=== PATIENT | female | born 1960 | race Caucasian/White ===

== ENCOUNTER 2019-02-26 17:08 | Observation (INO) ==
[2019-02-26 17:47] LABS: Basophils % 0.4 % (0.0-0.8); Eosinophils # 0.1 10*3/uL (0.0-0.87); Eosinophils % 2.1 % (0.00-10.9); Hematocrit 35.4 VOL% (35.7-47.0); Hemoglobin 11.6 GM/DL (12.0-16.0); Immature Granulocytes % 0.2 %; Immature Granulocytes Absolute 0.01 #; Lymphocytes # 0.5 10*3/uL (1.4-4.0); Mean Corpuscular HGB Conc 32.8 GM/DL (32-36); Mean Corpuscular Volume 95.2 FL (87-102); Mean Platelet Volume 10.8 FL (9.6-12.0); Monocytes % 10.5 % (1.7-12.7); Neutrophils % 76.8 % (38.7-73.9); Platelet Count 146 T/CUMM (130-400); Red Blood Count 3.72 MC/CUMM (3.8-5.5); Red Cell Distribution Width 13.1 % (9.3-17.3); White Blood Count 5.1 T/CUMM (4-12)
[2019-02-26 17:55] LABS: Alanine Aminotransferase 24 U/L (13-56); Albumin 3.7 G/DL (3.4-5.0); Alkaline Phosphatase 83 U/L (45-117); Amylase 35 U/L (25-115); Aspartate Amino Transferase 20 U/L (0-37); Bilirubin,Total < 0.39 MG/DL (0.2-1.0); Blood Urea Nitrogen 10 MG/DL (7-18); Glucose 96 MG/DL (74-106); Osmolality,Calculated 279.3 MOS/KG (273-304); Total Protein 7.2 G/DL (6.4-8.3)
[2019-02-26] MEDS ORDERED: ONDANSETRON 4 MG/2 ML VIAL IV PRN (20:05)
[2019-02-26] MEDS ORDERED: HYDROmorphone 2 MG/1 ML VIAL IV PRN (20:05)
[2019-02-26] MEDS: DEXTROSE 5% LACTATED RINGERS 1,000 ML IV SCH (21:30)
[2019-02-27] MEDS: DEXTROSE 5% LACTATED RINGERS 1,000 ML IV SCH ×2 (07:38→11:35)
[2019-02-27] MEDS: NYSTATIN 500,000 UNIT/5 ML UDCUP SWISH/SWAL SCH ×2 (08:55→13:18)
[2019-02-27] MEDS ORDERED: PANTOPRAZOLE 40 MG VIAL IV SCH (09:00)
[2019-02-27 12:02] VITALS: BP 124/56
== END 2019-02-27 14:06 | disposition home or self-care (01) ==
LOC: EDUNIT# → EDBD → N.ED 17:08 → N.EDINP 17:08 → N.3E 20:43
PROVIDERS: ADMIT Student in an Organized Health Care Education/Training Program; ATTEND Student in an Organized Health Care Education/Training Program

== ENCOUNTER 2019-08-03 18:59 | Inpatient (IN) ==
[2019-08-03 19:20] LABS: Basophils % 0.1 % (0.0-0.8); Eosinophils % 0.2 % (0.00-10.9); Hemoglobin 12.5 GM/DL (12.0-16.0); Immature Granulocytes % 0.3 %; Immature Granulocytes Absolute 0.03 #; Lymphocytes # 0.5 10*3/uL (1.4-4.0); Lymphocytes % 5.3 % (21.3-54.2); Mean Corpuscular HGB Conc 32.9 GM/DL (32-36); Mean Corpuscular Volume 95.5 FL (87-102); Mean Platelet Volume 9.5 FL (9.6-12.0); Monocytes % 10.6 % (1.7-12.7); Neutrophils % 83.5 % (38.7-73.9); Platelet Count 213 T/CUMM (130-400); Red Blood Count 3.98 MC/CUMM (3.8-5.5); Red Cell Distribution Width 12.6 % (9.3-17.3); White Blood Count 8.7 T/CUMM (4-12)
[2019-08-03] MEDS ORDERED: MEPERIDINE 50 MG/1 ML VIAL IM STA (19:21)
[2019-08-03] MEDS ORDERED: PROMETHAZINE 25 MG/1 ML VIAL IM STA (19:21)
[2019-08-03] MEDS ORDERED: METOPROLOL TARTRATE 50 MG TABLET PO STA (19:26)
[2019-08-03] MEDS ORDERED: ONDANSETRON ODT 4 MG TABLET PO STA (19:30)
[2019-08-03 19:37] LABS: Alanine Aminotransferase 21 U/L (13-56); Albumin 3.4 G/DL (3.4-5.0); Alkaline Phosphatase 101 U/L (45-117); Aspartate Amino Transferase 16 U/L (0-37); Bilirubin,Total < 0.39 MG/DL (0.2-1.0); Blood Urea Nitrogen 6 MG/DL (7-18); Calcium 9.1 MG/DL (8.5-10.1); Estimated Glom Filtration Rate 71 ML/MIN; Glucose 88 MG/DL (74-106); Osmolality,Calculated 269.8 MOS/KG (273-304); Total Protein 7.5 G/DL (6.4-8.3)
[2019-08-03 19:40] LABS: Apearance,Urine CLEAR (Clear); Bacteria,Urine Occasional /HPF (Few); Bilirubin,Urine Negative (Negative); Blood, Urine Large mg/dL (Negative); Glucose,Urine (UA) Negative (Negative); Ketones,Urine Negative (Negative); Nitrite,Urine Negative (Negative); Protein,Urine Negative; RBC,Urine 1 /HPF (0-4); Urine Color Colorless (Yellow); Urine Specific Gravity 1.002 (1.001-1.035); Urine Urobilinogen < 2.0 EU/DL (0.2-1.0); WBC,Urine 2 /HPF (0-6)
[2019-08-03 19:45] LABS: Barbiturates Screen,Urine Negative (Negative); Benzodiazepines Screen,Urine Negative (Negative); Cannabinoid Screen,Urine Negative (Negative); Opiate Screen,Urine Positive (Negative); Phencyclidine Screen,Urine Negative (Negative)
[2019-08-03] MEDS ORDERED: CIPROFLOXACIN 500 MG TABLET PO STA (20:16)
[2019-08-03] MEDS ORDERED: guaiFENesin/DM ER 600-30 MG TABLET PO PRN (21:42)
[2019-08-03] MEDS ORDERED: DOCUSATE SODIUM 100 MG CAPSULE PO PRN (21:42)
[2019-08-03] MEDS ORDERED: ACETAMINOPHEN 325 MG TABLET PO PRN (21:42)
[2019-08-03] MEDS ORDERED: LEVOFLOXACIN INJ 500 MG in PREMIX 1 EACH IV SCH (23:00)
[2019-08-03] MEDS: MORPHINE 4 MG/1 ML VIAL IV PRN (23:10)
[2019-08-03] MEDS: SODIUM CHLORIDE 0.9% 1,000 ML IV SCH (23:14)
[2019-08-03] MEDS ORDERED: POLYETHYLENE GLYCOL POWDER 17 GM PACK PO PRN (23:49)
[2019-08-04] MEDS: MORPHINE 4 MG/1 ML VIAL IV PRN ×2 (02:03→07:16)
[2019-08-04 05:52] LABS: Basophils % 0.1 % (0.0-0.8); Eosinophils % 0.2 % (0.00-10.9); Hematocrit 33.7 VOL% (35.7-47.0); Hemoglobin 11.1 GM/DL (12.0-16.0); Immature Granulocytes % 0.2 %; Immature Granulocytes Absolute 0.02 #; Lymphocytes # 0.5 10*3/uL (1.4-4.0); Lymphocytes % 5.5 % (21.3-54.2); Mean Corpuscular HGB Conc 32.9 GM/DL (32-36); Mean Corpuscular Volume 94.9 FL (87-102); Mean Platelet Volume 10.2 FL (9.6-12.0); Monocytes % 13.6 % (1.7-12.7); Neutrophils % 80.4 % (38.7-73.9); Platelet Count 190 T/CUMM (130-400); Red Blood Count 3.55 MC/CUMM (3.8-5.5); Red Cell Distribution Width 12.6 % (9.3-17.3); White Blood Count 8.2 T/CUMM (4-12)
[2019-08-04 06:09] LABS: Alanine Aminotransferase 19 U/L (13-56); Albumin 2.6 G/DL (3.4-5.0); Alkaline Phosphatase 83 U/L (45-117); Aspartate Amino Transferase 19 U/L (0-37); Bilirubin,Total < 0.39 MG/DL (0.2-1.0); Blood Urea Nitrogen 6 MG/DL (7-18); Calcium 8.5 MG/DL (8.5-10.1); Estimated Glom Filtration Rate 74 ML/MIN; Glucose 80 MG/DL (74-106); Osmolality,Calculated 269.8 MOS/KG (273-304); Total Protein 6.1 G/DL (6.4-8.3)
[2019-08-04] MEDS: PANTOPRAZOLE 40 MG TABLET PO SCH ×2 (07:16→08:31)
[2019-08-04] MEDS: NICOTINE 21 MG/24 HR PATCH TRANSDERM SCH ×2 (07:16→08:31)
[2019-08-04] MEDS: SODIUM CHLORIDE 0.9% 1,000 ML IV SCH ×4 (07:17→18:40)
[2019-08-04] MEDS ORDERED: ENOXAPARIN 40 MG/0.4 ML SYRINGE SUBCUT SCH (09:00)
[2019-08-04] MEDS ORDERED: DESIPRAMINE 25 MG PO SCH (09:00)
[2019-08-04] MEDS: ONDANSETRON 4 MG/2 ML VIAL IV PRN ×3 (09:05→23:14)
[2019-08-04] MEDS ORDERED: BISACODYL 5 MG TABLET PO ONE (12:00)
[2019-08-04] MEDS: BUPRENORPHINE SL TAB 2 MG TABLET SL SCH ×2 (13:57→20:15)
[2019-08-04] MEDS ORDERED: POLYETHYLENE GLYCOL POWDER 255 GM BOTTLE PO ONE (13:58)
[2019-08-04] MEDS: GABAPENTIN 300 MG CAPSULE PO SCH ×3 (14:41→22:52)
[2019-08-04] MEDS: METHOCARBAMOL 500 MG TABLET PO SCH ×2 (14:41→20:16)
[2019-08-04] MEDS: LEVOFLOXACIN 500 MG TABLET PO SCH (20:16)
[2019-08-04] MEDS ORDERED: GABAPENTIN 100 MG CAPSULE PO SCH (21:00)
[2019-08-04] MEDS ORDERED: METHOCARBAMOL 500 MG TABLET PO SCH (21:00)
[2019-08-05] MEDS: SODIUM CHLORIDE 0.9% 1,000 ML IV SCH ×3 (02:47→16:00)
[2019-08-05] MEDS: BUPRENORPHINE SL TAB 2 MG TABLET SL SCH ×3 (04:14→20:42)
[2019-08-05 05:30] LABS: Basophils % 0.1 % (0.0-0.8); Eosinophils % 0.1 % (0.00-10.9); Hematocrit 32.1 VOL% (35.7-47.0); Hemoglobin 10.5 GM/DL (12.0-16.0); Immature Granulocytes % 0.3 %; Immature Granulocytes Absolute 0.02 #; Lymphocytes # 0.4 10*3/uL (1.4-4.0); Lymphocytes % 5.4 % (21.3-54.2); Mean Corpuscular HGB Conc 32.7 GM/DL (32-36); Mean Platelet Volume 9.8 FL (9.6-12.0); Monocytes % 10.9 % (1.7-12.7); Neutrophils % 83.2 % (38.7-73.9); Platelet Count 165 T/CUMM (130-400); Red Blood Count 3.38 MC/CUMM (3.8-5.5); Red Cell Distribution Width 12.6 % (9.3-17.3); White Blood Count 7.4 T/CUMM (4-12)
[2019-08-05 05:33] LABS: PT Patient Result 11.1 SECS (9.6-12.2)
[2019-08-05 05:55] LABS: Albumin 2.5 G/DL (3.4-5.0); Bilirubin,Total 0.5 MG/DL (0.2-1.0); Calcium 8.4 MG/DL (8.5-10.1); Osmolality,Calculated 273.5 MOS/KG (273-304)
[2019-08-05] MEDS ORDERED: MAGNESIUM CITRATE 300 ML BOTTLE PO ONE (06:00)
[2019-08-05] MEDS: GABAPENTIN 300 MG CAPSULE PO SCH ×3 (09:02→23:36)
[2019-08-05] MEDS: PANTOPRAZOLE 40 MG TABLET PO SCH (09:03)
[2019-08-05] MEDS: METHOCARBAMOL 500 MG TABLET PO SCH ×2 (09:03→20:44)
[2019-08-05] MEDS: NICOTINE 21 MG/24 HR PATCH TRANSDERM SCH (09:03)
[2019-08-05] MEDS: LACTATED RINGERS 1,000 ML IV SCH (09:09)
[2019-08-05] MEDS: ONDANSETRON 4 MG/2 ML VIAL IV PRN (14:38)
[2019-08-05] MEDS: LEVOFLOXACIN 500 MG TABLET PO SCH (20:41)
[2019-08-06] MEDS: BUPRENORPHINE SL TAB 2 MG TABLET SL SCH ×3 (05:13→20:52)
[2019-08-06] MEDS: ONDANSETRON 4 MG/2 ML VIAL IV PRN (07:27)
[2019-08-06] MEDS: SODIUM CHLORIDE 0.9% 1,000 ML IV SCH ×4 (07:29→22:15)
[2019-08-06] MEDS: LACTATED RINGERS 1,000 ML IV SCH (07:44)
[2019-08-06] MEDS: NICOTINE 21 MG/24 HR PATCH TRANSDERM SCH (09:00)
[2019-08-06] MEDS: GABAPENTIN 300 MG CAPSULE PO SCH (09:00)
[2019-08-06] MEDS: METHOCARBAMOL 500 MG TABLET PO SCH ×2 (09:00→20:52)
[2019-08-06] MEDS: PANTOPRAZOLE 40 MG TABLET PO SCH (09:01)
[2019-08-06] MEDS ORDERED: GABAPENTIN 50 MG/ML 30 ML/BOTTLE PO SCH (15:00)
[2019-08-06] MEDS: ACETAMINOPHEN 325 MG/10.15 ML UDCUP PO PRN (15:09)
[2019-08-06] MEDS: LEVOFLOXACIN 500 MG TABLET PO SCH (20:52)
[2019-08-07] MEDS: ACETAMINOPHEN 325 MG/10.15 ML UDCUP PO PRN ×2 (01:45→12:38)
[2019-08-07] MEDS: BUPRENORPHINE SL TAB 2 MG TABLET SL SCH ×3 (05:05→21:06)
[2019-08-07] MEDS: LACTATED RINGERS 1,000 ML IV SCH (08:54)
[2019-08-07] MEDS: LANSOPRAZOLE 3 MG/ML 90 ML/BOTTLE PO SCH (09:14)
[2019-08-07] MEDS: METHOCARBAMOL 500 MG TABLET PO SCH ×2 (09:15→21:06)
[2019-08-07] MEDS: NICOTINE 21 MG/24 HR PATCH TRANSDERM SCH (09:15)
[2019-08-07] MEDS: SODIUM CHLORIDE 0.9% 1,000 ML IV SCH (11:00)
[2019-08-07] MEDS: ONDANSETRON 4 MG/2 ML VIAL IV PRN ×2 (12:17→21:31)
[2019-08-07] MEDS: SODIUM CHLORIDE 0.65% NASAL SPRAY 45 ML BOTTLE BOTH NARES PRN ×2 (12:38→17:38)
[2019-08-07] MEDS: METOPROLOL SUCCINATE XL 25 MG TABLET PO SCH (12:38)
[2019-08-07] MEDS ORDERED: POLYETHYLENE GLYCOL POWDER 255 GM BOTTLE PO ONE (16:00)
[2019-08-07] MEDS: LEVOFLOXACIN 500 MG TABLET PO SCH (21:06)
[2019-08-08] MEDS: SODIUM CHLORIDE 0.9% 1,000 ML IV SCH ×5 (04:40→22:13)
[2019-08-08] MEDS: BUPRENORPHINE SL TAB 2 MG TABLET SL SCH ×3 (04:44→20:45)
[2019-08-08] MEDS ORDERED: MAGNESIUM CITRATE 300 ML BOTTLE PO ONE ×2 (06:00)
[2019-08-08] MEDS ORDERED: propofoL 200 MG/20 ML VIAL IV ONE (09:00)
[2019-08-08] MEDS ORDERED: ONDANSETRON 4 MG/2 ML VIAL ONE (09:00)
[2019-08-08] MEDS ORDERED: LIDOCAINE 2% 5 ML VIAL ONE (09:00)
[2019-08-08] MEDS: NICOTINE 21 MG/24 HR PATCH TRANSDERM SCH (09:49)
[2019-08-08] MEDS: LACTATED RINGERS 1,000 ML IV SCH ×2 (12:50→13:42)
[2019-08-08] MEDS: METHOCARBAMOL 500 MG TABLET PO SCH ×2 (14:47→20:29)
[2019-08-08] MEDS: POTASSIUM CHLORIDE 20 MEQ TABLET PO PRN (14:47)
[2019-08-08] MEDS: METOPROLOL SUCCINATE XL 25 MG TABLET PO SCH (14:51)
[2019-08-08] MEDS: LANSOPRAZOLE 3 MG/ML 90 ML/BOTTLE PO SCH (14:53)
[2019-08-08] MEDS: LEVOFLOXACIN 500 MG TABLET PO SCH (20:29)
[2019-08-08] MEDS: ACETAMINOPHEN 325 MG/10.15 ML UDCUP PO PRN (20:29)
[2019-08-09] MEDS: BUPRENORPHINE SL TAB 2 MG TABLET SL SCH ×3 (04:57→20:11)
[2019-08-09 05:51] LABS: Basophils % 0.1 % (0.0-0.8); Eosinophils % 0.1 % (0.00-10.9); Hematocrit 30.2 VOL% (35.7-47.0); Hemoglobin 10.3 GM/DL (12.0-16.0); Immature Granulocytes % 0.5 %; Immature Granulocytes Absolute 0.04 #; Lymphocytes # 0.5 10*3/uL (1.4-4.0); Lymphocytes % 5.9 % (21.3-54.2); Mean Corpuscular HGB Conc 34.1 GM/DL (32-36); Mean Corpuscular Volume 92.6 FL (87-102); Mean Platelet Volume 9.7 FL (9.6-12.0); Monocytes % 11.6 % (1.7-12.7); Neutrophils % 81.8 % (38.7-73.9); Platelet Count 185 T/CUMM (130-400); Red Blood Count 3.26 MC/CUMM (3.8-5.5); Red Cell Distribution Width 12.5 % (9.3-17.3); White Blood Count 7.8 T/CUMM (4-12)
[2019-08-09 06:02] LABS: Calcium 8.4 MG/DL (8.5-10.1); Osmolality,Calculated 280.1 MOS/KG (273-304)
[2019-08-09] MEDS: POTASSIUM CHLORIDE 20 MEQ TABLET PO PRN ×5 (07:30→23:27)
[2019-08-09] MEDS: SODIUM CHLORIDE 0.9% 1,000 ML IV SCH ×2 (07:35→15:51)
[2019-08-09] MEDS: LACTATED RINGERS 1,000 ML IV SCH (07:36)
[2019-08-09] MEDS ORDERED: POTASSIUM CHLORIDE RIDER 10 MEQ in PREMIX 1 EACH IV PRN (07:45)
[2019-08-09] MEDS: NICOTINE 21 MG/24 HR PATCH TRANSDERM SCH (09:29)
[2019-08-09] MEDS: METOPROLOL SUCCINATE XL 25 MG TABLET PO SCH (09:30)
[2019-08-09] MEDS: METHOCARBAMOL 500 MG TABLET PO SCH ×2 (09:31→20:11)
[2019-08-09] MEDS: LANSOPRAZOLE 3 MG/ML 90 ML/BOTTLE PO SCH (09:34)
[2019-08-09] MEDS: ACETAMINOPHEN 325 MG/10.15 ML UDCUP PO PRN ×2 (11:55→18:45)
[2019-08-09] MEDS: LORATADINE 10 MG TABLET PO SCH (15:50)
[2019-08-09] MEDS: LEVOFLOXACIN 500 MG TABLET PO SCH (20:11)
[2019-08-10] MEDS: POTASSIUM CHLORIDE 20 MEQ TABLET PO PRN ×4 (01:40→14:23)
[2019-08-10] MEDS: ACETAMINOPHEN 325 MG/10.15 ML UDCUP PO PRN ×3 (02:50→17:00)
[2019-08-10 05:22] LABS: Basophils % 0.1 % (0.0-0.8); Eosinophils % 0.1 % (0.00-10.9); Hematocrit 28.8 VOL% (35.7-47.0); Hemoglobin 9.7 GM/DL (12.0-16.0); Immature Granulocytes % 0.4 %; Immature Granulocytes Absolute 0.04 #; Lymphocytes # 0.3 10*3/uL (1.4-4.0); Lymphocytes % 3.3 % (21.3-54.2); Mean Corpuscular HGB Conc 33.7 GM/DL (32-36); Mean Corpuscular Volume 92.9 FL (87-102); Mean Platelet Volume 10.2 FL (9.6-12.0); Monocytes % 10.3 % (1.7-12.7); Neutrophils % 85.8 % (38.7-73.9); Platelet Count 185 T/CUMM (130-400); Red Cell Distribution Width 12.7 % (9.3-17.3); White Blood Count 9.8 T/CUMM (4-12)
[2019-08-10] MEDS: BUPRENORPHINE SL TAB 2 MG TABLET SL SCH ×2 (05:22→13:40)
[2019-08-10] MEDS: SODIUM CHLORIDE 0.9% 1,000 ML IV SCH (05:22)
[2019-08-10 05:40] LABS: Calcium 8.1 MG/DL (8.5-10.1)
[2019-08-10 05:50] LABS: Hypochromasia 1+; Lymphocytes 3 % (20-55); Platelet Estimate Adequate; Segmented Neutrophils 86 % (50-85); Total Cells Counted 100
[2019-08-10] MEDS: LACTATED RINGERS 1,000 ML IV SCH (06:23)
[2019-08-10] MEDS: NICOTINE 21 MG/24 HR PATCH TRANSDERM SCH (09:11)
[2019-08-10] MEDS: METHOCARBAMOL 500 MG TABLET PO SCH (09:11)
[2019-08-10] MEDS: METOPROLOL SUCCINATE XL 25 MG TABLET PO SCH (09:11)
[2019-08-10] MEDS: LANSOPRAZOLE 3 MG/ML 90 ML/BOTTLE PO SCH (09:11)
[2019-08-10] MEDS: LORATADINE 10 MG TABLET PO SCH (09:11)
[2019-08-10 11:25] VITALS: BP 142/80
== END 2019-08-10 17:41 | disposition home health service (06) | DRG 48 ==
LOC: EDBD → EDUNIT# → N.ED 18:59 → SUATTDRO 21:55 → N.EDINP 21:55 → N.ICU 22:15 → N.4E 08-04 10:44
PROVIDERS: ADMIT Internal Medicine; ATTEND Internal Medicine

== ENCOUNTER 2019-08-18 18:36 | Inpatient (IN) ==
[2019-08-18] MEDS ORDERED: fentaNYL 100 MCG/2 ML VIAL IV STA ×2 (19:07→20:29)
[2019-08-18] MEDS ORDERED: ONDANSETRON 4 MG/2 ML VIAL IV STA (19:07)
[2019-08-18 19:57] LABS: Basophils % 0.1 % (0.0-0.8); Eosinophils % 0.1 % (0.00-10.9); Hematocrit 35.8 VOL% (35.7-47.0); Hemoglobin 12.1 GM/DL (12.0-16.0); Immature Granulocytes % 0.4 %; Immature Granulocytes Absolute 0.05 #; Lymphocytes # 0.7 10*3/uL (1.4-4.0); Lymphocytes % 4.8 % (21.3-54.2); Mean Corpuscular HGB Conc 33.8 GM/DL (32-36); Mean Platelet Volume 9.4 FL (9.6-12.0); Monocytes % 7.3 % (1.7-12.7); Neutrophils % 87.3 % (38.7-73.9); Platelet Count 303 T/CUMM (130-400); Red Blood Count 3.81 MC/CUMM (3.8-5.5); Red Cell Distribution Width 13.4 % (9.3-17.3); White Blood Count 13.6 T/CUMM (4-12)
[2019-08-18 20:02] LABS: Apearance,Urine CLEAR (Clear); Bacteria,Urine Occasional /HPF (Few); Bilirubin,Urine Negative (Negative); Blood, Urine Small mg/dL (Negative); Glucose,Urine (UA) Negative (Negative); Ketones,Urine Negative (Negative); Mucus,Urine Occasional /LPF (Occasional); Nitrite,Urine Positive (Negative); Protein,Urine Negative; RBC,Urine 2 /HPF (0-4); Urine Color Amber (Yellow); Urine Specific Gravity 1.005 (1.001-1.035); WBC,Urine 3 /HPF (0-6)
[2019-08-18 20:28] LABS: Albumin 3.5 G/DL (3.4-5.0); Bilirubin,Total 0.7 MG/DL (0.2-1.0); Calcium 9.4 MG/DL (8.5-10.1); Osmolality,Calculated 276.4 MOS/KG (273-304); Total Protein 7.6 G/DL (6.4-8.3)
[2019-08-18] MEDS ORDERED: PHENAZOPYRIDINE 95 MG TABLET PO STA (20:29)
[2019-08-18] MEDS ORDERED: LEVOFLOXACIN INJ 750 MG in PREMIX 1 EACH IV STA (20:29)
[2019-08-18] MEDS ORDERED: POTASSIUM BICARB EFFERVESCENT 25 MEQ TABLET PO ONE (20:30)
[2019-08-18 20:35] LABS: Eosinophils 1 % (0-10); Lymphocytes 9 % (20-55); Segmented Neutrophils 87 % (50-85); Total Cells Counted 100
[2019-08-18 20:36] LABS: Platelet Estimate Normal
[2019-08-18] MEDS ORDERED: diphenhydrAMINE CAP 25 MG CAPSULE PO PRN (21:16)
[2019-08-18] MEDS ORDERED: NICOTINE 21 MG/24 HR PATCH TRANSDERM PRN (21:16)
[2019-08-18] MEDS ORDERED: ONDANSETRON 4 MG/2 ML VIAL IV PRN (21:16)
[2019-08-18] MEDS ORDERED: BISACODYL 5 MG TABLET PO PRN (21:16)
[2019-08-18] MEDS ORDERED: PROMETHAZINE 25 MG/1 ML VIAL IM PRN (21:16)
[2019-08-18] MEDS: MORPHINE 4 MG/1 ML VIAL IV PRN (22:04)
[2019-08-18] MEDS: SODIUM CHLORIDE 0.9% 1,000 ML IV SCH (22:04)
[2019-08-18] MEDS: ACETAMINOPHEN 325 MG TABLET PO PRN (23:47)
[2019-08-19] MEDS: MORPHINE 4 MG/1 ML VIAL IV PRN ×2 (00:57→04:00)
[2019-08-19 05:12] LABS: Basophils % 0.1 % (0.0-0.8); Eosinophils % 0.1 % (0.00-10.9); Hematocrit 29.8 VOL% (35.7-47.0); Immature Granulocytes % 0.3 %; Immature Granulocytes Absolute 0.03 #; Lymphocytes # 0.6 10*3/uL (1.4-4.0); Lymphocytes % 5.3 % (21.3-54.2); Mean Corpuscular HGB Conc 33.6 GM/DL (32-36); Mean Platelet Volume 9.9 FL (9.6-12.0); Monocytes % 9.4 % (1.7-12.7); Neutrophils % 84.8 % (38.7-73.9); Platelet Count 267 T/CUMM (130-400); Red Blood Count 3.17 MC/CUMM (3.8-5.5); Red Cell Distribution Width 13.3 % (9.3-17.3); White Blood Count 11.1 T/CUMM (4-12)
[2019-08-19 05:34] LABS: Albumin 2.6 G/DL (3.4-5.0); Bilirubin,Total 0.9 MG/DL (0.2-1.0); Calcium 8.8 MG/DL (8.5-10.1); Osmolality,Calculated 275.4 MOS/KG (273-304)
[2019-08-19] MEDS: SODIUM CHLORIDE 0.9% 1,000 ML IV SCH (05:41)
[2019-08-19] MEDS: POTASSIUM CHLORIDE 20 MEQ TABLET PO PRN ×2 (05:46→08:17)
[2019-08-19] MEDS ORDERED: POLYETHYLENE GLYCOL POWDER 17 GM PACK PO PRN (07:05)
[2019-08-19] MEDS: METOPROLOL SUCCINATE XL 25 MG TABLET PO SCH (08:05)
[2019-08-19] MEDS: LORATADINE 10 MG TABLET PO SCH (08:05)
[2019-08-19] MEDS: ACETAMINOPHEN 325 MG TABLET PO PRN (08:05)
[2019-08-19] MEDS: DICYCLOMINE 20 MG TABLET PO SCH ×4 (08:05→20:48)
[2019-08-19] MEDS: AZTREONAM 2,000 MG in SODIUM CHLORIDE 0.9% 100 ML IV SCH ×3 (08:05→20:17)
[2019-08-19] MEDS: BUPRENORPHINE SL TAB 2 MG TABLET SL SCH ×3 (08:08→23:40)
[2019-08-19] MEDS: DOCUSATE SODIUM 100 MG CAPSULE PO SCH (08:08)
[2019-08-19] MEDS ORDERED: DESIPRAMINE 25 MG PO SCH (09:00)
[2019-08-19] MEDS: LEVOFLOXACIN INJ 500 MG in PREMIX 1 EACH IV SCH (09:22)
[2019-08-19] MEDS ORDERED: MORPHINE ER 15 MG TABLET PO SCH (11:00)
[2019-08-19] MEDS ORDERED: LINACLOTIDE 145 MCG CAPSULE PO SCH (12:00)
[2019-08-19] MEDS: ACETAMINOPHEN 325 MG/10.15 ML UDCUP PO PRN ×2 (12:56→20:56)
[2019-08-19] MEDS: POTASSIUM CHLORIDE INJ 40 MEQ, SODIUM CHLORIDE 23.4% CONC INJ 38.5 MEQ in STERILE WATER... IV SCH (12:57)
[2019-08-19] MEDS: PHENAZOPYRIDINE 95 MG TABLET PO SCH ×2 (12:57→17:23)
[2019-08-19] MEDS: POTASSIUM CHLORIDE 20 MEQ/15 ML UDCUP PER TUBE PRN ×2 (12:57→20:48)
[2019-08-19] MEDS: MORPHINE IR 15 MG TABLET PO PRN ×2 (13:56→20:47)
[2019-08-19] MEDS ORDERED: LEVOFLOXACIN INJ 750 MG in PREMIX 1 EACH IV SCH (21:00)
[2019-08-20] MEDS: POTASSIUM CHLORIDE INJ 40 MEQ, SODIUM CHLORIDE 23.4% CONC INJ 38.5 MEQ in STERILE WATER... IV SCH (01:18)
[2019-08-20] MEDS: AZTREONAM 2,000 MG in SODIUM CHLORIDE 0.9% 100 ML IV SCH ×2 (01:48→09:27)
[2019-08-20] MEDS: ACETAMINOPHEN 325 MG/10.15 ML UDCUP PO PRN (02:50)
[2019-08-20] MEDS: MORPHINE IR 15 MG TABLET PO PRN (02:50)
[2019-08-20] MEDS ORDERED: POTASSIUM CHLORIDE 20 MEQ TABLET PO ONE (06:45)
[2019-08-20 07:58] VITALS: BP 130/75
[2019-08-20] MEDS: BUPRENORPHINE SL TAB 2 MG TABLET SL SCH (09:14)
[2019-08-20] MEDS: LEVOFLOXACIN INJ 500 MG in PREMIX 1 EACH IV SCH (09:14)
[2019-08-20] MEDS: DICYCLOMINE 20 MG TABLET PO SCH (09:15)
[2019-08-20] MEDS: METOPROLOL SUCCINATE XL 25 MG TABLET PO SCH (09:15)
[2019-08-20] MEDS: LORATADINE 10 MG TABLET PO SCH (09:15)
[2019-08-20] MEDS: PHENAZOPYRIDINE 95 MG TABLET PO SCH (09:15)
[2019-08-20] MEDS: DOCUSATE SODIUM 100 MG CAPSULE PO SCH (09:27)
== END 2019-08-20 10:15 | disposition home or self-care (01) | DRG 463 ==
LOC: N.ED 18:36 → N.EDINP 21:16 → N.4E 22:36
PROVIDERS: ADMIT Hospitalist; ATTEND Hospitalist

== ENCOUNTER 2019-09-13 18:14 | Inpatient (IN) ==
[2019-09-13] MEDS ORDERED: DICYCLOMINE 20 MG/2 ML AMP IM ONE (18:43)
[2019-09-13] MEDS ORDERED: SODIUM CHLORIDE 0.9% 1,000 ML IV STA (18:43)
[2019-09-13] MEDS ORDERED: METOCLOPRAMIDE 10 MG/2 ML VIAL IV STA (18:43)
[2019-09-13] MEDS ORDERED: ONDANSETRON 4 MG/2 ML VIAL IV STA (18:43)
[2019-09-13 18:51] LABS: Apearance,Urine Slightly Hazy (Clear); Bilirubin,Urine Negative (Negative); Blood, Urine Small mg/dL (Negative); Glucose,Urine (UA) Negative (Negative); Ketones,Urine Negative (Negative); Mucus,Urine Occasional /LPF (Occasional); Nitrite,Urine Negative (Negative); Protein,Urine 30 MG/DL; RBC,Urine 10 /HPF (0-4); Squamous Epithelial Cell,Urine Occasional /HPF (0-10); Urine Color Yellow (Yellow); Urine Specific Gravity 1.014 (1.001-1.035); Urine Urobilinogen < 2.0 EU/DL (0.2-1.0); WBC,Urine 26 /HPF (0-6)
[2019-09-13 18:55] LABS: Basophils % 0.2 % (0.0-0.8); Eosinophils # 0.8 10*3/uL (0.0-0.87); Eosinophils % 3.6 % (0.00-10.9); Hemoglobin 11.3 GM/DL (12.0-16.0); Immature Granulocytes % 0.8 %; Immature Granulocytes Absolute 0.18 #; Lymphocytes # 0.4 10*3/uL (1.4-4.0); Mean Corpuscular HGB Conc 33.2 GM/DL (32-36); Mean Corpuscular Volume 93.7 FL (87-102); Mean Platelet Volume 10.5 FL (9.6-12.0); Neutrophils % 87.4 % (38.7-73.9); Platelet Count 235 T/CUMM (130-400); Red Blood Count 3.63 MC/CUMM (3.8-5.5); Red Cell Distribution Width 13.4 % (9.3-17.3); White Blood Count 21.2 T/CUMM (4-12)
[2019-09-13 19:06] LABS: Alanine Aminotransferase 11 U/L (13-56); Albumin 2.9 G/DL (3.4-5.0); Alkaline Phosphatase 79 U/L (45-117); Amylase 11 U/L (25-115); Aspartate Amino Transferase 11 U/L (0-37); Bilirubin,Total < 0.39 MG/DL (0.2-1.0); Blood Urea Nitrogen 11 MG/DL (7-18); Calcium 8.9 MG/DL (8.5-10.1); Estimated Glom Filtration Rate 66 ML/MIN; Glucose 98 MG/DL (74-106); Osmolality,Calculated 268.1 MOS/KG (273-304); Total Protein 6.9 G/DL (6.4-8.3); Troponin I < 0.015 NG/ML (0.00-0.045)
[2019-09-13] MEDS ORDERED: LEVOFLOXACIN INJ 750 MG in PREMIX 1 EACH IV STA (19:44)
[2019-09-13] MEDS ORDERED: fentaNYL 100 MCG/2 ML VIAL IV STA (19:44)
[2019-09-13 19:45] LABS: Platelet Estimate Normal
[2019-09-13 19:46] LABS: Hypochromasia Slight; Microcytosis Slight
[2019-09-13] MEDS: LEVOFLOXACIN INJ 500 MG in PREMIX 1 EACH IV SCH (22:51)
[2019-09-13] MEDS: ENOXAPARIN 40 MG/0.4 ML SYRINGE SUBCUT SCH (22:51)
[2019-09-13] MEDS: SODIUM CHLORIDE 0.45% 1,000 ML IV SCH (22:51)
[2019-09-13] MEDS: MORPHINE 4 MG/1 ML VIAL IV PRN (22:55)
[2019-09-14] MEDS: MORPHINE 4 MG/1 ML VIAL IV PRN ×5 (03:42→22:41)
[2019-09-14 04:55] LABS: Basophils % 0.1 % (0.0-0.8); Eosinophils # 0.7 10*3/uL (0.0-0.87); Eosinophils % 3.8 % (0.00-10.9); Hematocrit 27.3 VOL% (35.7-47.0); Hemoglobin 8.9 GM/DL (12.0-16.0); Immature Granulocytes % 0.5 %; Lymphocytes # 0.3 10*3/uL (1.4-4.0); Lymphocytes % 1.7 % (21.3-54.2); Mean Corpuscular HGB Conc 32.6 GM/DL (32-36); Mean Corpuscular Volume 94.1 FL (87-102); Mean Platelet Volume 10.3 FL (9.6-12.0); Monocytes % 8.6 % (1.7-12.7); Neutrophils % 85.3 % (38.7-73.9); Platelet Count 198 T/CUMM (130-400); Red Cell Distribution Width 13.4 % (9.3-17.3); White Blood Count 19.5 T/CUMM (4-12)
[2019-09-14] MEDS: SODIUM CHLORIDE 0.45% 1,000 ML IV SCH ×3 (05:13→21:53)
[2019-09-14 05:25] LABS: Calcium 8.5 MG/DL (8.5-10.1)
[2019-09-14 05:28] LABS: Band Neutrophils 1 % (0-10); Eosinophils 3 % (0-10); Lymphocytes 1 % (20-55); Segmented Neutrophils 87 % (50-85); Total Cells Counted 100
[2019-09-14 05:29] LABS: Hypochromasia 1+; Microcytosis Slight; Platelet Estimate Adequate
[2019-09-14] MEDS: DULoxetine 30 MG CAPSULE PO SCH (08:54)
[2019-09-14] MEDS: PANTOPRAZOLE 40 MG TABLET PO SCH (08:54)
[2019-09-14] MEDS: METOPROLOL SUCCINATE XL 25 MG TABLET PO SCH (08:54)
[2019-09-14] MEDS ORDERED: ZALEPLON 5 MG CAPSULE PO ONE (21:18)
[2019-09-14] MEDS ORDERED: ZOLPIDEM 5 MG TABLET PO ONE (21:44)
[2019-09-14] MEDS: ENOXAPARIN 40 MG/0.4 ML SYRINGE SUBCUT SCH (21:52)
[2019-09-14] MEDS: LEVOFLOXACIN INJ 500 MG in PREMIX 1 EACH IV SCH (21:52)
[2019-09-15] MEDS: MORPHINE 4 MG/1 ML VIAL IV PRN ×5 (02:47→22:00)
[2019-09-15] MEDS: SODIUM CHLORIDE 0.45% 1,000 ML IV SCH ×2 (05:03→21:50)
[2019-09-15] MEDS: DULoxetine 30 MG CAPSULE PO SCH (08:54)
[2019-09-15] MEDS: METOPROLOL SUCCINATE XL 25 MG TABLET PO SCH (08:54)
[2019-09-15] MEDS: PANTOPRAZOLE 40 MG TABLET PO SCH (08:54)
[2019-09-15] MEDS: LACTULOSE 20 GM/30 ML UDCUP PO PRN (12:08)
[2019-09-15] MEDS: ONDANSETRON 4 MG/2 ML VIAL IV PRN (12:08)
[2019-09-15] MEDS ORDERED: MAGNESIUM CITRATE 300 ML BOTTLE PO ONE (13:46)
[2019-09-15] MEDS ORDERED: OXYBUTYNIN 5 MG TABLET PO ONE (17:58)
[2019-09-15] MEDS: LEVOFLOXACIN INJ 500 MG in PREMIX 1 EACH IV SCH (21:50)
[2019-09-15] MEDS: ENOXAPARIN 40 MG/0.4 ML SYRINGE SUBCUT SCH (21:51)
[2019-09-16] MEDS: MORPHINE 4 MG/1 ML VIAL IV PRN ×4 (04:15→20:45)
[2019-09-16] MEDS: SODIUM CHLORIDE 0.45% 1,000 ML IV SCH ×2 (04:16→20:59)
[2019-09-16 04:55] LABS: Basophils % 0.2 % (0.0-0.8); Eosinophils # 0.3 10*3/uL (0.0-0.87); Eosinophils % 1.7 % (0.00-10.9); Hematocrit 27.4 VOL% (35.7-47.0); Hemoglobin 9.1 GM/DL (12.0-16.0); Immature Granulocytes % 0.7 %; Immature Granulocytes Absolute 0.14 #; Lymphocytes # 0.3 10*3/uL (1.4-4.0); Lymphocytes % 1.7 % (21.3-54.2); Mean Corpuscular HGB Conc 33.2 GM/DL (32-36); Mean Corpuscular Volume 92.6 FL (87-102); Mean Platelet Volume 10.6 FL (9.6-12.0); Neutrophils % 86.7 % (38.7-73.9); Platelet Count 204 T/CUMM (130-400); Red Blood Count 2.96 MC/CUMM (3.8-5.5); Red Cell Distribution Width 13.4 % (9.3-17.3); White Blood Count 20.5 T/CUMM (4-12)
[2019-09-16 05:11] LABS: Calcium 8.6 MG/DL (8.5-10.1); Osmolality,Calculated 266.1 MOS/KG (273-304)
[2019-09-16 05:22] LABS: Eosinophils 1 % (0-10); Hypochromasia 1+; Lymphocytes 2 % (20-55); Platelet Estimate Adequate; Segmented Neutrophils 92 % (50-85); Total Cells Counted 100
[2019-09-16 05:23] LABS: Microcytosis Slight
[2019-09-16] MEDS ORDERED: POTASSIUM CHLORIDE 20 MEQ TABLET PO PRN (07:41)
[2019-09-16] MEDS: METOPROLOL SUCCINATE XL 25 MG TABLET PO SCH (08:30)
[2019-09-16] MEDS: DULoxetine 30 MG CAPSULE PO SCH (08:30)
[2019-09-16] MEDS: PANTOPRAZOLE 40 MG TABLET PO SCH (08:30)
[2019-09-16] MEDS: OXYBUTYNIN XL 5 MG TABLET PO SCH (08:30)
[2019-09-16] MEDS: POTASSIUM CHLORIDE 20 MEQ/15 ML UDCUP PER TUBE PRN ×4 (08:32→16:59)
[2019-09-16] MEDS: LACTULOSE 20 GM/30 ML UDCUP PO PRN (10:47)
[2019-09-16] MEDS: VANCOMYCIN INJ 500 MG in SODIUM CHLORIDE 0.9% 100 ML IV SCH ×2 (10:48→20:48)
[2019-09-16] MEDS: ENOXAPARIN 40 MG/0.4 ML SYRINGE SUBCUT SCH ×2 (20:49→22:10)
[2019-09-16] MEDS: ZOLPIDEM 5 MG TABLET PO PRN (20:59)
[2019-09-16] MEDS: LEVOFLOXACIN INJ 500 MG in PREMIX 1 EACH IV SCH (21:55)
[2019-09-17] MEDS: MORPHINE 4 MG/1 ML VIAL IV PRN ×4 (03:50→21:50)
[2019-09-17 05:02] LABS: Basophils % 0.1 % (0.0-0.8); Eosinophils # 0.2 10*3/uL (0.0-0.87); Eosinophils % 1.2 % (0.00-10.9); Hemoglobin 8.3 GM/DL (12.0-16.0); Immature Granulocytes % 0.5 %; Immature Granulocytes Absolute 0.09 #; Lymphocytes # 0.3 10*3/uL (1.4-4.0); Lymphocytes % 1.4 % (21.3-54.2); Mean Corpuscular HGB Conc 33.2 GM/DL (32-36); Mean Corpuscular Volume 92.3 FL (87-102); Mean Platelet Volume 10.2 FL (9.6-12.0); Monocytes % 8.8 % (1.7-12.7); Platelet Count 183 T/CUMM (130-400); Red Blood Count 2.71 MC/CUMM (3.8-5.5); Red Cell Distribution Width 13.4 % (9.3-17.3); White Blood Count 19.9 T/CUMM (4-12)
[2019-09-17 06:23] LABS: Hypochromasia 1+; Lymphocytes 1 % (20-55); Segmented Neutrophils 94 % (50-85); Total Cells Counted 100
[2019-09-17 06:24] LABS: Microcytosis Slight; Platelet Estimate Adequate
[2019-09-17] MEDS ORDERED: MAGNESIUM CITRATE 300 ML BOTTLE PO ONE (08:57)
[2019-09-17] MEDS: CEFEPIME 1,000 MG in SODIUM CHLORIDE 0.9% 100 ML IV SCH ×3 (10:11→21:23)
[2019-09-17] MEDS: DULoxetine 30 MG CAPSULE PO SCH (10:12)
[2019-09-17] MEDS: OXYBUTYNIN XL 5 MG TABLET PO SCH (10:12)
[2019-09-17] MEDS: PANTOPRAZOLE 40 MG TABLET PO SCH (10:12)
[2019-09-17] MEDS: METOPROLOL SUCCINATE XL 25 MG TABLET PO SCH ×2 (10:12→13:20)
[2019-09-17] MEDS ORDERED: SCOPOLAMINE 1.5 MG PATCH TRANSDERM ONE (13:47)
[2019-09-17] MEDS ORDERED: SEVOFLURANE 1 UNIT/15 MINUTE INH ONE (15:46)
[2019-09-17] MEDS ORDERED: MIDAZOLAM 2 MG/2 ML VIAL ONE (15:46)
[2019-09-17] MEDS ORDERED: propofoL 200 MG/20 ML VIAL IV ONE (15:46)
[2019-09-17] MEDS ORDERED: DEXAMETHASONE 4 MG/1 ML VIAL ONE (15:46)
[2019-09-17] MEDS ORDERED: LIDOCAINE 2% 5 ML VIAL ONE (15:46)
[2019-09-17] MEDS ORDERED: fentaNYL 100 MCG/2 ML VIAL ONE (15:46)
[2019-09-17] MEDS ORDERED: ONDANSETRON 4 MG/2 ML VIAL ONE (15:46)
[2019-09-17] MEDS ORDERED: PHENYLEPHRINE 1 MG/10 ML SYRINGE IV ONE (15:47)
[2019-09-17] MEDS: ENOXAPARIN 40 MG/0.4 ML SYRINGE SUBCUT SCH (21:24)
[2019-09-17] MEDS: LEVOFLOXACIN INJ 500 MG in PREMIX 1 EACH IV SCH (22:05)
[2019-09-18] MEDS: CEFEPIME 1,000 MG in SODIUM CHLORIDE 0.9% 100 ML IV SCH ×4 (02:45→20:40)
[2019-09-18] MEDS: MORPHINE 4 MG/1 ML VIAL IV PRN (03:13)
[2019-09-18] MEDS: SODIUM CHLORIDE 0.45% 1,000 ML IV SCH ×2 (04:05→09:52)
[2019-09-18 06:05] LABS: Basophils % 0.2 % (0.0-0.8); Hemoglobin 8.5 GM/DL (12.0-16.0); Immature Granulocytes % 0.7 %; Immature Granulocytes Absolute 0.13 #; Lymphocytes # 0.3 10*3/uL (1.4-4.0); Lymphocytes % 1.9 % (21.3-54.2); Mean Corpuscular HGB Conc 32.7 GM/DL (32-36); Mean Corpuscular Volume 94.5 FL (87-102); Mean Platelet Volume 10.3 FL (9.6-12.0); Monocytes % 4.9 % (1.7-12.7); Neutrophils % 92.3 % (38.7-73.9); Platelet Count 202 T/CUMM (130-400); Red Blood Count 2.75 MC/CUMM (3.8-5.5); Red Cell Distribution Width 13.8 % (9.3-17.3); White Blood Count 17.4 T/CUMM (4-12)
[2019-09-18 06:26] LABS: Calcium 8.5 MG/DL (8.5-10.1); Osmolality,Calculated 272.7 MOS/KG (273-304)
[2019-09-18 08:27] LABS: Lymphocytes 2 % (20-55); Platelet Estimate Normal; Segmented Neutrophils 97 % (50-85); Total Cells Counted 100
[2019-09-18] MEDS ORDERED: MAGNESIUM CITRATE 300 ML BOTTLE PO ONE (08:50)
[2019-09-18] MEDS: METOPROLOL SUCCINATE XL 25 MG TABLET PO SCH (09:50)
[2019-09-18] MEDS: DULoxetine 30 MG CAPSULE PO SCH (09:50)
[2019-09-18] MEDS: PANTOPRAZOLE 40 MG TABLET PO SCH (09:51)
[2019-09-18] MEDS: OXYBUTYNIN XL 5 MG TABLET PO SCH (09:51)
[2019-09-18] MEDS: NICOTINE 14 MG/24 HR PATCH TRANSDERM SCH (09:52)
[2019-09-18] MEDS: ONDANSETRON 4 MG/2 ML VIAL IV PRN (12:32)
[2019-09-18] MEDS: ENOXAPARIN 40 MG/0.4 ML SYRINGE SUBCUT SCH ×2 (20:40→21:45)
[2019-09-18] MEDS: LEVOFLOXACIN INJ 500 MG in PREMIX 1 EACH IV SCH (21:10)
[2019-09-19] MEDS: SODIUM CHLORIDE 0.45% 1,000 ML IV SCH ×3 (02:10→17:49)
[2019-09-19] MEDS: CEFEPIME 1,000 MG in SODIUM CHLORIDE 0.9% 100 ML IV SCH ×4 (02:10→21:25)
[2019-09-19 05:51] LABS: Basophils # 0.1 10*3/uL (0.0-0.2); Basophils % 0.2 % (0.0-0.8); Eosinophils # 0.1 10*3/uL (0.0-0.87); Eosinophils % 0.5 % (0.00-10.9); Hematocrit 28.4 VOL% (35.7-47.0); Hemoglobin 9.5 GM/DL (12.0-16.0); Immature Granulocytes % 0.8 %; Immature Granulocytes Absolute 0.19 #; Lymphocytes # 0.5 10*3/uL (1.4-4.0); Lymphocytes % 2.1 % (21.3-54.2); Mean Corpuscular HGB Conc 33.5 GM/DL (32-36); Mean Corpuscular Volume 92.5 FL (87-102); Mean Platelet Volume 10.1 FL (9.6-12.0); Monocytes % 6.2 % (1.7-12.7); Neutrophils % 90.2 % (38.7-73.9); Platelet Count 227 T/CUMM (130-400); Red Blood Count 3.07 MC/CUMM (3.8-5.5); Red Cell Distribution Width 13.8 % (9.3-17.3); White Blood Count 23.6 T/CUMM (4-12)
[2019-09-19 06:04] LABS: Calcium 8.9 MG/DL (8.5-10.1); Osmolality,Calculated 263.4 MOS/KG (273-304)
[2019-09-19 06:17] LABS: Lymphocytes 4 % (20-55); Segmented Neutrophils 93 % (50-85); Total Cells Counted 100
[2019-09-19 06:18] LABS: Hypochromasia 1+; Microcytosis Slight
[2019-09-19 06:19] LABS: Platelet Estimate Normal
[2019-09-19] MEDS: DULoxetine 30 MG CAPSULE PO SCH (09:47)
[2019-09-19] MEDS: METOPROLOL SUCCINATE XL 25 MG TABLET PO SCH (09:47)
[2019-09-19] MEDS: PANTOPRAZOLE 40 MG TABLET PO SCH (09:47)
[2019-09-19] MEDS: OXYBUTYNIN XL 5 MG TABLET PO SCH (09:47)
[2019-09-19] MEDS: NICOTINE 14 MG/24 HR PATCH TRANSDERM SCH (09:47)
[2019-09-19] MEDS: MORPHINE 4 MG/1 ML VIAL IV PRN ×2 (17:12→21:29)
[2019-09-19] MEDS: ENOXAPARIN 40 MG/0.4 ML SYRINGE SUBCUT SCH (21:25)
[2019-09-19] MEDS: LEVOFLOXACIN INJ 500 MG in PREMIX 1 EACH IV SCH (22:34)
[2019-09-20] MEDS: CEFEPIME 1,000 MG in SODIUM CHLORIDE 0.9% 100 ML IV SCH ×4 (02:50→20:33)
[2019-09-20] MEDS: MORPHINE 4 MG/1 ML VIAL IV PRN ×4 (02:50→20:35)
[2019-09-20 05:31] LABS: Calcium 8.5 MG/DL (8.5-10.1)
[2019-09-20 05:34] LABS: Basophils % 0.1 % (0.0-0.8); Eosinophils # 0.4 10*3/uL (0.0-0.87); Eosinophils % 1.8 % (0.00-10.9); Hematocrit 26.3 VOL% (35.7-47.0); Hemoglobin 8.6 GM/DL (12.0-16.0); Immature Granulocytes % 0.5 %; Immature Granulocytes Absolute 0.11 #; Lymphocytes # 0.3 10*3/uL (1.4-4.0); Lymphocytes % 1.6 % (21.3-54.2); Mean Corpuscular HGB Conc 32.7 GM/DL (32-36); Mean Corpuscular Volume 93.9 FL (87-102); Mean Platelet Volume 10.4 FL (9.6-12.0); Monocytes % 7.5 % (1.7-12.7); Neutrophils % 88.5 % (38.7-73.9); Platelet Count 228 T/CUMM (130-400); Red Cell Distribution Width 14.1 % (9.3-17.3); White Blood Count 20.8 T/CUMM (4-12)
[2019-09-20 05:58] LABS: Hypochromasia 1+; Lymphocytes 2 % (20-55); Platelet Estimate Adequate; Segmented Neutrophils 89 % (50-85); Total Cells Counted 100
[2019-09-20 05:59] LABS: Microcytosis Slight
[2019-09-20] MEDS: NICOTINE 14 MG/24 HR PATCH TRANSDERM SCH (09:17)
[2019-09-20] MEDS: PANTOPRAZOLE 40 MG TABLET PO SCH (09:17)
[2019-09-20] MEDS: POTASSIUM CHLORIDE 20 MEQ/15 ML UDCUP PER TUBE PRN ×4 (09:17→17:26)
[2019-09-20] MEDS: METOPROLOL SUCCINATE XL 25 MG TABLET PO SCH (09:17)
[2019-09-20] MEDS: OXYBUTYNIN XL 5 MG TABLET PO SCH (09:17)
[2019-09-20] MEDS: DULoxetine 30 MG CAPSULE PO SCH (09:17)
[2019-09-20] MEDS: LACTULOSE 20 GM/30 ML UDCUP PO PRN (14:46)
[2019-09-20] MEDS: ENOXAPARIN 40 MG/0.4 ML SYRINGE SUBCUT SCH (21:00)
[2019-09-20] MEDS: LEVOFLOXACIN INJ 500 MG in PREMIX 1 EACH IV SCH (21:02)
[2019-09-21] MEDS: MORPHINE 4 MG/1 ML VIAL IV PRN ×5 (00:30→21:37)
[2019-09-21] MEDS: CEFEPIME 1,000 MG in SODIUM CHLORIDE 0.9% 100 ML IV SCH ×4 (02:55→20:07)
[2019-09-21 06:20] LABS: Basophils % 0.2 % (0.0-0.8); Eosinophils # 0.5 10*3/uL (0.0-0.87); Eosinophils % 2.8 % (0.00-10.9); Hematocrit 26.8 VOL% (35.7-47.0); Hemoglobin 8.6 GM/DL (12.0-16.0); Immature Granulocytes % 0.7 %; Immature Granulocytes Absolute 0.13 #; Lymphocytes # 0.3 10*3/uL (1.4-4.0); Lymphocytes % 1.7 % (21.3-54.2); Mean Corpuscular HGB Conc 32.1 GM/DL (32-36); Mean Corpuscular Volume 94.7 FL (87-102); Mean Platelet Volume 10.2 FL (9.6-12.0); Monocytes % 5.7 % (1.7-12.7); Neutrophils % 88.9 % (38.7-73.9); Platelet Count 223 T/CUMM (130-400); Red Blood Count 2.83 MC/CUMM (3.8-5.5); Red Cell Distribution Width 14.1 % (9.3-17.3); White Blood Count 18.5 T/CUMM (4-12)
[2019-09-21 06:38] LABS: Calcium 8.5 MG/DL (8.5-10.1); Osmolality,Calculated 273.7 MOS/KG (273-304)
[2019-09-21 06:46] LABS: Eosinophils 4 % (0-10); Hypochromasia 1+; Platelet Estimate Adequate; Segmented Neutrophils 90 % (50-85); Total Cells Counted 100
[2019-09-21 06:47] LABS: Microcytosis Slight
[2019-09-21] MEDS: SODIUM CHLORIDE 0.45% 1,000 ML IV SCH ×2 (06:50→19:53)
[2019-09-21] MEDS: METOPROLOL SUCCINATE XL 25 MG TABLET PO SCH (09:59)
[2019-09-21] MEDS: OXYBUTYNIN XL 5 MG TABLET PO SCH (09:59)
[2019-09-21] MEDS: NICOTINE 14 MG/24 HR PATCH TRANSDERM SCH (09:59)
[2019-09-21] MEDS: DULoxetine 30 MG CAPSULE PO SCH (09:59)
[2019-09-21] MEDS: PANTOPRAZOLE 40 MG TABLET PO SCH (09:59)
[2019-09-21] MEDS ORDERED: fentaNYL 12 MCG/HR PATCH TRANSDERM SCH (16:30)
[2019-09-21] MEDS: LACTULOSE 20 GM/30 ML UDCUP PO PRN (18:15)
[2019-09-21] MEDS: ENOXAPARIN 40 MG/0.4 ML SYRINGE SUBCUT SCH (21:27)
[2019-09-22] MEDS: SODIUM CHLORIDE 0.45% 1,000 ML IV SCH ×3 (02:07→18:21)
[2019-09-22] MEDS: CEFEPIME 1,000 MG in SODIUM CHLORIDE 0.9% 100 ML IV SCH ×4 (02:41→21:24)
[2019-09-22] MEDS: MORPHINE 4 MG/1 ML VIAL IV PRN ×4 (03:07→20:06)
[2019-09-22] MEDS: NICOTINE 14 MG/24 HR PATCH TRANSDERM SCH (09:48)
[2019-09-22] MEDS: METOPROLOL SUCCINATE XL 25 MG TABLET PO SCH (10:17)
[2019-09-22] MEDS: PANTOPRAZOLE 40 MG TABLET PO SCH (10:17)
[2019-09-22] MEDS: DULoxetine 30 MG CAPSULE PO SCH (10:18)
[2019-09-22] MEDS: OXYBUTYNIN XL 5 MG TABLET PO SCH (10:18)
[2019-09-22] MEDS: ENOXAPARIN 40 MG/0.4 ML SYRINGE SUBCUT SCH (21:23)
[2019-09-22] MEDS: ZOLPIDEM 5 MG TABLET PO PRN (21:41)
[2019-09-23] MEDS: MORPHINE 4 MG/1 ML VIAL IV PRN ×5 (01:33→21:37)
[2019-09-23] MEDS: CEFEPIME 1,000 MG in SODIUM CHLORIDE 0.9% 100 ML IV SCH ×4 (04:00→21:34)
[2019-09-23 06:42] LABS: Basophils # 0.1 10*3/uL (0.0-0.2); Basophils % 0.2 % (0.0-0.8); Eosinophils # 0.4 10*3/uL (0.0-0.87); Eosinophils % 2.1 % (0.00-10.9); Hematocrit 27.6 VOL% (35.7-47.0); Hemoglobin 9.1 GM/DL (12.0-16.0); Immature Granulocytes % 0.5 %; Lymphocytes # 0.4 10*3/uL (1.4-4.0); Lymphocytes % 1.9 % (21.3-54.2); Mean Corpuscular Volume 92.6 FL (87-102); Mean Platelet Volume 10.7 FL (9.6-12.0); Monocytes % 5.5 % (1.7-12.7); Neutrophils % 89.8 % (38.7-73.9); Platelet Count 226 T/CUMM (130-400); Red Blood Count 2.98 MC/CUMM (3.8-5.5); Red Cell Distribution Width 14.2 % (9.3-17.3); White Blood Count 20.4 T/CUMM (4-12)
[2019-09-23 06:53] LABS: Calcium 8.5 MG/DL (8.5-10.1); Osmolality,Calculated 265.2 MOS/KG (273-304)
[2019-09-23 07:09] LABS: Eosinophils 1 % (0-10); Hypochromasia 1+; Microcytosis Slight; Platelet Estimate Adequate; Segmented Neutrophils 94 % (50-85); Total Cells Counted 100
[2019-09-23] MEDS: POTASSIUM CHLORIDE 20 MEQ/15 ML UDCUP PER TUBE PRN ×4 (07:58→18:03)
[2019-09-23] MEDS: PANTOPRAZOLE 40 MG TABLET PO SCH (09:37)
[2019-09-23] MEDS: METOPROLOL SUCCINATE XL 25 MG TABLET PO SCH (09:38)
[2019-09-23] MEDS: OXYBUTYNIN XL 5 MG TABLET PO SCH (09:38)
[2019-09-23] MEDS: DULoxetine 30 MG CAPSULE PO SCH (09:38)
[2019-09-23] MEDS: NICOTINE 14 MG/24 HR PATCH TRANSDERM SCH (10:50)
[2019-09-23] MEDS ORDERED: fentaNYL 25 MCG/HR PATCH TRANSDERM SCH (16:30)
[2019-09-23] MEDS: ZOLPIDEM 5 MG TABLET PO PRN (21:32)
[2019-09-23] MEDS: ENOXAPARIN 40 MG/0.4 ML SYRINGE SUBCUT SCH (21:33)
[2019-09-24] MEDS: MORPHINE 4 MG/1 ML VIAL IV PRN ×4 (03:38→18:28)
[2019-09-24] MEDS: CEFEPIME 1,000 MG in SODIUM CHLORIDE 0.9% 100 ML IV SCH ×2 (03:43→09:33)
[2019-09-24 05:52] LABS: Calcium 8.8 MG/DL (8.5-10.1); Osmolality,Calculated 271.8 MOS/KG (273-304)
[2019-09-24] MEDS: DULoxetine 30 MG CAPSULE PO SCH (09:32)
[2019-09-24] MEDS: OXYBUTYNIN XL 5 MG TABLET PO SCH (09:33)
[2019-09-24] MEDS: PANTOPRAZOLE 40 MG TABLET PO SCH (09:33)
[2019-09-24] MEDS: NICOTINE 14 MG/24 HR PATCH TRANSDERM SCH (09:33)
[2019-09-24] MEDS: METOPROLOL SUCCINATE XL 25 MG TABLET PO SCH (09:33)
[2019-09-24] MEDS: POTASSIUM CHLORIDE 20 MEQ/15 ML UDCUP PER TUBE PRN ×2 (09:34→11:48)
[2019-09-24] MEDS: ENOXAPARIN 40 MG/0.4 ML SYRINGE SUBCUT SCH (21:19)
[2019-09-24] MEDS: ZOLPIDEM 5 MG TABLET PO PRN (21:19)
[2019-09-25] MEDS: MORPHINE 4 MG/1 ML VIAL IV PRN ×3 (00:05→10:02)
[2019-09-25] MEDS: LACTULOSE 20 GM/30 ML UDCUP PO PRN (06:24)
[2019-09-25 07:51] VITALS: BP 119/57
[2019-09-25] MEDS: DULoxetine 30 MG CAPSULE PO SCH (08:02)
[2019-09-25] MEDS: METOPROLOL SUCCINATE XL 25 MG TABLET PO SCH (08:03)
[2019-09-25] MEDS: POTASSIUM CHLORIDE 20 MEQ/15 ML UDCUP PER TUBE PRN (08:03)
[2019-09-25] MEDS: PANTOPRAZOLE 40 MG TABLET PO SCH (08:03)
[2019-09-25] MEDS: OXYBUTYNIN XL 5 MG TABLET PO SCH (08:03)
[2019-09-25] MEDS: NICOTINE 14 MG/24 HR PATCH TRANSDERM SCH (09:38)
== END 2019-09-25 12:14 | disposition home or self-care (01) | DRG 446 ==
LOC: EDUNIT# → EDBD → N.ED 18:14 → SUATTDRO 21:27 → N.EDINP 21:27 → N.5E 22:16
PROVIDERS: ADMIT Internal Medicine; ATTEND Internal Medicine

== ENCOUNTER 2019-09-30 12:56 | Inpatient (IN) ==
[2019-09-30] MEDS ORDERED: SODIUM CHLORIDE 0.9% 1,000 ML IV STA (13:25)
[2019-09-30] MEDS ORDERED: LOPERAMIDE 2 MG CAPSULE PO STA (13:26)
[2019-09-30 14:27] LABS: Basophils # 0.1 10*3/uL (0.0-0.2); Basophils % 0.2 % (0.0-0.8); Eosinophils # 0.2 10*3/uL (0.0-0.87); Eosinophils % 0.8 % (0.00-10.9); Hematocrit 30.6 VOL% (35.7-47.0); Hemoglobin 9.8 GM/DL (12.0-16.0); Immature Granulocytes % 0.8 %; Immature Granulocytes Absolute 0.23 #; Lymphocytes # 0.4 10*3/uL (1.4-4.0); Lymphocytes % 1.4 % (21.3-54.2); Mean Corpuscular Volume 94.7 FL (87-102); Mean Platelet Volume 9.9 FL (9.6-12.0); Neutrophils % 92.8 % (38.7-73.9); Platelet Count 290 T/CUMM (130-400); Red Blood Count 3.23 MC/CUMM (3.8-5.5); Red Cell Distribution Width 14.6 % (9.3-17.3); White Blood Count 29.1 T/CUMM (4-12)
[2019-09-30 14:38] LABS: Apearance,Urine CLOUDY (Clear); Bilirubin,Urine Negative (Negative); Blood, Urine Large mg/dL (Negative); Glucose,Urine (UA) Negative (Negative); Ketones,Urine Negative (Negative); Mucus,Urine Moderate /LPF (Occasional); Nitrite,Urine Negative (Negative); Protein,Urine 100 MG/DL; RBC,Urine 959 /HPF (0-4); Urine Color Amber (Yellow); Urine Specific Gravity 1.013 (1.001-1.035); Urine Urobilinogen < 2.0 EU/DL (0.2-1.0); WBC,Urine 136 /HPF (0-6)
[2019-09-30 14:47] LABS: Acetaminophen < 2.0 UG/ML (10-30); Salicylate < 2.8 MG/DL (2.8-20)
[2019-09-30 14:50] LABS: Alanine Aminotransferase 11 U/L (13-56); Albumin 2.4 G/DL (3.4-5.0); Alkaline Phosphatase 100 U/L (45-117); Aspartate Amino Transferase 10 U/L (0-37); Blood Urea Nitrogen 16 MG/DL (7-18); Calcium 8.3 MG/DL (8.5-10.1); Estimated Glom Filtration Rate 65 ML/MIN; Glucose 85 MG/DL (74-106); Osmolality,Calculated 265.4 MOS/KG (273-304); Total Protein 6.1 G/DL (6.4-8.3)
[2019-09-30] MEDS ORDERED: LEVOFLOXACIN INJ 750 MG in PREMIX 1 EACH IV STA (14:56)
[2019-09-30] MEDS ORDERED: metroNIDAZOLE INJ 500 MG in PREMIX 1 EACH IV STA (14:56)
[2019-09-30] MEDS ORDERED: DICYCLOMINE 20 MG/2 ML AMP IM ONE (14:57)
[2019-09-30 15:11] LABS: Barbiturates Screen,Urine Negative (Negative); Benzodiazepines Screen,Urine Negative (Negative); Cannabinoid Screen,Urine Negative (Negative); Opiate Screen,Urine Positive (Negative); Phencyclidine Screen,Urine Negative (Negative)
[2019-09-30 15:21] LABS: Lymphocytes 2 % (20-55); Segmented Neutrophils 94 % (50-85); Total Cells Counted 100
[2019-09-30 15:22] LABS: Platelet Estimate Normal
[2019-09-30] MEDS ORDERED: CALCIUM CARBONATE CHEW 500 MG TABLET PO PRN (15:52)
[2019-09-30] MEDS ORDERED: SIMETHICONE CHEW 125 MG TABLET PO PRN (15:52)
[2019-09-30] MEDS ORDERED: ZOLPIDEM 5 MG TABLET PO PRN (16:01)
[2019-09-30] MEDS: MORPHINE IR 15 MG TABLET PO SCH (16:56)
[2019-09-30] MEDS: SODIUM CHLORIDE 0.9% 1,000 ML IV SCH (16:56)
[2019-09-30] MEDS: DICYCLOMINE 20 MG TABLET PO SCH ×2 (16:56→21:24)
[2019-09-30] MEDS: LACTULOSE 20 GM/30 ML UDCUP PO SCH ×2 (16:56→21:23)
[2019-09-30] MEDS: DOCUSATE SODIUM 100 MG CAPSULE PO SCH (21:24)
[2019-09-30] MEDS: METHOCARBAMOL 500 MG TABLET PO SCH (21:24)
[2019-09-30] MEDS: PHENAZOPYRIDINE 95 MG TABLET PO SCH (21:24)
[2019-10-01] MEDS: MORPHINE IR 15 MG TABLET PO SCH ×3 (01:12→15:44)
[2019-10-01] MEDS: LACTULOSE 20 GM/30 ML UDCUP PO SCH ×6 (01:13→20:44)
[2019-10-01] MEDS: SODIUM CHLORIDE 0.9% 1,000 ML IV SCH ×2 (01:14→10:40)
[2019-10-01 04:37] LABS: Basophils % 0.1 % (0.0-0.8); Eosinophils # 0.1 10*3/uL (0.0-0.87); Eosinophils % 0.6 % (0.00-10.9); Hematocrit 24.6 VOL% (35.7-47.0); Hemoglobin 7.8 GM/DL (12.0-16.0); Immature Granulocytes % 0.9 %; Lymphocytes # 0.3 10*3/uL (1.4-4.0); Lymphocytes % 1.5 % (21.3-54.2); Mean Corpuscular HGB Conc 31.7 GM/DL (32-36); Mean Platelet Volume 10.1 FL (9.6-12.0); Neutrophils % 91.9 % (38.7-73.9); Platelet Count 244 T/CUMM (130-400); Red Blood Count 2.59 MC/CUMM (3.8-5.5); Red Cell Distribution Width 14.5 % (9.3-17.3)
[2019-10-01 05:00] LABS: Albumin 1.9 G/DL (3.4-5.0); Bilirubin,Total 0.5 MG/DL (0.2-1.0); Calcium 7.8 MG/DL (8.5-10.1); Total Protein 4.9 G/DL (6.4-8.3)
[2019-10-01 05:14] LABS: Hypochromasia 2+; Lymphocytes 1 % (20-55); Microcytosis Slight; Platelet Estimate Adequate; Segmented Neutrophils 96 % (50-85); Total Cells Counted 100
[2019-10-01] MEDS ORDERED: SODIUM CHLORIDE 0.9% 1,000 ML IV PRN (07:17)
[2019-10-01] MEDS ORDERED: diphenhydrAMINE CAP 25 MG CAPSULE PO ONE (07:18)
[2019-10-01] MEDS ORDERED: ACETAMINOPHEN 325 MG TABLET PO ONE (07:18)
[2019-10-01] MEDS ORDERED: FUROSEMIDE 20 MG/2 ML VIAL IV ONE (07:19)
[2019-10-01] MEDS: METHOCARBAMOL 500 MG TABLET PO SCH ×2 (08:16→20:45)
[2019-10-01] MEDS: POTASSIUM CHLORIDE 10 MEQ TABLET PO SCH (08:16)
[2019-10-01] MEDS: PANTOPRAZOLE 40 MG TABLET PO SCH (08:16)
[2019-10-01] MEDS: DICYCLOMINE 20 MG TABLET PO SCH ×4 (08:16→20:45)
[2019-10-01] MEDS: PHENAZOPYRIDINE 95 MG TABLET PO SCH ×3 (08:16→20:44)
[2019-10-01] MEDS: DULoxetine 30 MG CAPSULE PO SCH (08:16)
[2019-10-01] MEDS: METOPROLOL SUCCINATE XL 25 MG TABLET PO SCH (08:16)
[2019-10-01] MEDS: OXYBUTYNIN XL 5 MG TABLET PO SCH (08:27)
[2019-10-01] MEDS ORDERED: LEVOFLOXACIN INJ 500 MG in PREMIX 1 EACH IV SCH (09:00)
[2019-10-01] MEDS: DOCUSATE SODIUM 100 MG CAPSULE PO SCH ×2 (09:46→20:45)
[2019-10-01] MEDS: BISACODYL 5 MG TABLET PO SCH (09:46)
[2019-10-01] MEDS: POTASSIUM CHLORIDE RIDER 10 MEQ in PREMIX 1 EACH IV SCH ×3 (11:12→15:48)
[2019-10-01] MEDS: ACETAMINOPHEN 325 MG TABLET PO PRN (20:58)
[2019-10-02] MEDS: LACTULOSE 20 GM/30 ML UDCUP PO SCH ×6 (01:19→19:38)
[2019-10-02] MEDS: MORPHINE IR 15 MG TABLET PO SCH ×3 (01:30→16:20)
[2019-10-02 05:33] LABS: Basophils % 0.2 % (0.0-0.8); Eosinophils # 0.2 10*3/uL (0.0-0.87); Eosinophils % 1.1 % (0.00-10.9); Hematocrit 38.2 VOL% (35.7-47.0); Hemoglobin 12.8 GM/DL (12.0-16.0); Immature Granulocytes % 0.4 %; Immature Granulocytes Absolute 0.07 #; Lymphocytes # 0.4 10*3/uL (1.4-4.0); Lymphocytes % 2.3 % (21.3-54.2); Mean Corpuscular HGB Conc 33.5 GM/DL (32-36); Mean Corpuscular Volume 90.1 FL (87-102); Monocytes % 6.5 % (1.7-12.7); Neutrophils % 89.5 % (38.7-73.9); Platelet Count 225 T/CUMM (130-400); Red Blood Count 4.24 MC/CUMM (3.8-5.5); Red Cell Distribution Width 14.6 % (9.3-17.3); White Blood Count 16.1 T/CUMM (4-12)
[2019-10-02 05:54] LABS: Albumin 2.1 G/DL (3.4-5.0); Calcium 8.3 MG/DL (8.5-10.1); Total Protein 5.6 G/DL (6.4-8.3)
[2019-10-02 06:48] LABS: Lymphocytes 2 % (20-55); Platelet Estimate Adequate; Segmented Neutrophils 92 % (50-85); Total Cells Counted 100
[2019-10-02 06:49] LABS: Microcytosis Slight
[2019-10-02] MEDS ORDERED: POTASSIUM CHLORIDE RIDER 10 MEQ in PREMIX 1 EACH IV PRN (09:11)
[2019-10-02] MEDS: METHOCARBAMOL 500 MG TABLET PO SCH ×2 (09:19→20:34)
[2019-10-02] MEDS: METOPROLOL SUCCINATE XL 25 MG TABLET PO SCH (09:19)
[2019-10-02] MEDS: DICYCLOMINE 20 MG TABLET PO SCH ×4 (09:19→20:34)
[2019-10-02] MEDS: OXYBUTYNIN XL 5 MG TABLET PO SCH (09:19)
[2019-10-02] MEDS: PANTOPRAZOLE 40 MG TABLET PO SCH (09:19)
[2019-10-02] MEDS: DULoxetine 30 MG CAPSULE PO SCH (09:19)
[2019-10-02] MEDS: POTASSIUM CHLORIDE 10 MEQ TABLET PO SCH (09:23)
[2019-10-02] MEDS: PHENAZOPYRIDINE 95 MG TABLET PO SCH ×3 (09:25→20:34)
[2019-10-02] MEDS: LEVOFLOXACIN 500 MG TABLET PO SCH (09:26)
[2019-10-02] MEDS: POTASSIUM CHLORIDE 20 MEQ TABLET PO PRN ×3 (09:54→13:26)
[2019-10-02] MEDS: DOCUSATE SODIUM 100 MG CAPSULE PO SCH ×2 (09:59→20:34)
[2019-10-02] MEDS: BISACODYL 5 MG TABLET PO SCH (09:59)
[2019-10-02] MEDS: ACETAMINOPHEN 325 MG TABLET PO PRN (12:00)
[2019-10-02] MEDS: ZALEPLON 5 MG CAPSULE PO PRN (20:34)
[2019-10-02] MEDS: diphenhydrAMINE CAP 25 MG CAPSULE PO PRN (20:34)
[2019-10-03] MEDS: LACTULOSE 20 GM/30 ML UDCUP PO SCH ×7 (01:29→23:35)
[2019-10-03] MEDS: MORPHINE IR 15 MG TABLET PO SCH ×3 (01:31→15:44)
[2019-10-03 05:31] LABS: Basophils % 0.1 % (0.0-0.8); Eosinophils # 0.2 10*3/uL (0.0-0.87); Hematocrit 39.2 VOL% (35.7-47.0); Hemoglobin 13.1 GM/DL (12.0-16.0); Immature Granulocytes % 0.5 %; Immature Granulocytes Absolute 0.08 #; Lymphocytes # 0.3 10*3/uL (1.4-4.0); Lymphocytes % 1.7 % (21.3-54.2); Mean Corpuscular HGB Conc 33.4 GM/DL (32-36); Mean Corpuscular Volume 90.3 FL (87-102); Mean Platelet Volume 10.2 FL (9.6-12.0); Neutrophils % 90.7 % (38.7-73.9); Platelet Count 225 T/CUMM (130-400); Red Blood Count 4.34 MC/CUMM (3.8-5.5); Red Cell Distribution Width 14.3 % (9.3-17.3); White Blood Count 17.2 T/CUMM (4-12)
[2019-10-03 05:47] LABS: Calcium 8.8 MG/DL (8.5-10.1); Osmolality,Calculated 267.1 MOS/KG (273-304)
[2019-10-03 06:08] LABS: Hypochromasia 1+; Lymphocytes 1 % (20-55); Platelet Estimate Adequate; Segmented Neutrophils 96 % (50-85); Total Cells Counted 100
[2019-10-03 06:09] LABS: Microcytosis Slight
[2019-10-03] MEDS: BISACODYL 5 MG TABLET PO SCH (08:10)
[2019-10-03] MEDS: DICYCLOMINE 20 MG TABLET PO SCH ×4 (08:10→21:49)
[2019-10-03] MEDS: DULoxetine 30 MG CAPSULE PO SCH (08:10)
[2019-10-03] MEDS: LEVOFLOXACIN 500 MG TABLET PO SCH (08:10)
[2019-10-03] MEDS: PANTOPRAZOLE 40 MG TABLET PO SCH (08:10)
[2019-10-03] MEDS: OXYBUTYNIN XL 5 MG TABLET PO SCH (08:12)
[2019-10-03] MEDS: METOPROLOL SUCCINATE XL 25 MG TABLET PO SCH (08:12)
[2019-10-03] MEDS: PHENAZOPYRIDINE 95 MG TABLET PO SCH ×3 (08:12→21:49)
[2019-10-03] MEDS: METHOCARBAMOL 500 MG TABLET PO SCH ×2 (08:12→21:49)
[2019-10-03] MEDS: DOCUSATE SODIUM 100 MG CAPSULE PO SCH ×2 (08:12→21:49)
[2019-10-03] MEDS: POTASSIUM CHLORIDE 10 MEQ TABLET PO SCH (08:13)
[2019-10-03] MEDS ORDERED: ALBUTEROL 2.5 MG/3 ML NEB RESP TX PRN (12:43)
[2019-10-03] MEDS: ACETAMINOPHEN 325 MG TABLET PO PRN (13:51)
[2019-10-03] MEDS: NICOTINE 21 MG/24 HR PATCH TRANSDERM PRN (15:50)
[2019-10-03] MEDS: ALUMINUM/MAGNES/SIMETH MAX STR 30 ML UDCUP PO PRN (18:18)
[2019-10-03] MEDS: diphenhydrAMINE CAP 25 MG CAPSULE PO PRN (21:49)
[2019-10-03] MEDS: ZALEPLON 5 MG CAPSULE PO PRN (21:49)
[2019-10-04] MEDS: ZALEPLON 5 MG CAPSULE PO PRN ×2 (01:43→21:37)
[2019-10-04] MEDS: MORPHINE IR 15 MG TABLET PO SCH ×2 (01:43→09:13)
[2019-10-04] MEDS: LACTULOSE 20 GM/30 ML UDCUP PO SCH ×5 (03:15→21:31)
[2019-10-04 05:04] LABS: Basophils % 0.1 % (0.0-0.8); Eosinophils # 0.3 10*3/uL (0.0-0.87); Eosinophils % 1.6 % (0.00-10.9); Hematocrit 43.4 VOL% (35.7-47.0); Hemoglobin 14.2 GM/DL (12.0-16.0); Immature Granulocytes % 0.5 %; Immature Granulocytes Absolute 0.09 #; Lymphocytes # 0.3 10*3/uL (1.4-4.0); Lymphocytes % 1.9 % (21.3-54.2); Mean Corpuscular HGB Conc 32.7 GM/DL (32-36); Mean Corpuscular Volume 92.9 FL (87-102); Mean Platelet Volume 10.2 FL (9.6-12.0); Neutrophils % 88.9 % (38.7-73.9); Platelet Count 221 T/CUMM (130-400); Red Blood Count 4.67 MC/CUMM (3.8-5.5); Red Cell Distribution Width 14.4 % (9.3-17.3); White Blood Count 16.6 T/CUMM (4-12)
[2019-10-04 05:28] LABS: Eosinophils 1 % (0-10); Hypochromasia 1+; Lymphocytes 3 % (20-55); Platelet Estimate Adequate; Segmented Neutrophils 91 % (50-85); Total Cells Counted 100
[2019-10-04 05:29] LABS: Microcytosis Slight
[2019-10-04 05:38] LABS: Calcium 9.3 MG/DL (8.5-10.1); Osmolality,Calculated 267.1 MOS/KG (273-304)
[2019-10-04] MEDS ORDERED: fentaNYL 25 MCG/HR PATCH TRANSDERM SCH (09:00)
[2019-10-04] MEDS: ALUMINUM/MAGNES/SIMETH MAX STR 30 ML UDCUP PO PRN (09:11)
[2019-10-04] MEDS: LEVOFLOXACIN 500 MG TABLET PO SCH (09:11)
[2019-10-04] MEDS: POTASSIUM CHLORIDE 10 MEQ TABLET PO SCH (09:11)
[2019-10-04] MEDS: DOCUSATE SODIUM 100 MG CAPSULE PO SCH ×2 (09:12→21:37)
[2019-10-04] MEDS: OXYBUTYNIN XL 5 MG TABLET PO SCH (09:12)
[2019-10-04] MEDS: PHENAZOPYRIDINE 95 MG TABLET PO SCH ×3 (09:12→21:37)
[2019-10-04] MEDS: METHOCARBAMOL 500 MG TABLET PO SCH ×2 (09:12→21:37)
[2019-10-04] MEDS: DULoxetine 30 MG CAPSULE PO SCH (09:12)
[2019-10-04] MEDS: PANTOPRAZOLE 40 MG TABLET PO SCH (09:13)
[2019-10-04] MEDS: METOPROLOL SUCCINATE XL 25 MG TABLET PO SCH (09:13)
[2019-10-04] MEDS: DICYCLOMINE 20 MG TABLET PO SCH ×4 (09:13→21:37)
[2019-10-04] MEDS: BISACODYL 5 MG TABLET PO SCH (09:14)
[2019-10-04] MEDS: NICOTINE 21 MG/24 HR PATCH TRANSDERM PRN (14:36)
[2019-10-04] MEDS: metroNIDAZOLE INJ 500 MG in PREMIX 1 EACH IV SCH ×2 (14:38→23:00)
[2019-10-04] MEDS: diphenhydrAMINE CAP 25 MG CAPSULE PO PRN (21:37)
[2019-10-05] MEDS: LACTULOSE 20 GM/30 ML UDCUP PO SCH ×7 (00:57→23:24)
[2019-10-05 05:36] LABS: Basophils % 0.1 % (0.0-0.8); Eosinophils # 0.2 10*3/uL (0.0-0.87); Eosinophils % 0.7 % (0.00-10.9); Hematocrit 38.3 VOL% (35.7-47.0); Hemoglobin 12.1 GM/DL (12.0-16.0); Immature Granulocytes % 0.8 %; Immature Granulocytes Absolute 0.18 #; Lymphocytes # 0.3 10*3/uL (1.4-4.0); Lymphocytes % 1.2 % (21.3-54.2); Mean Corpuscular HGB Conc 31.6 GM/DL (32-36); Mean Corpuscular Volume 93.4 FL (87-102); Monocytes % 6.4 % (1.7-12.7); Neutrophils % 90.8 % (38.7-73.9); Platelet Count 226 T/CUMM (130-400); White Blood Count 22.6 T/CUMM (4-12)
[2019-10-05 05:58] LABS: Calcium 8.8 MG/DL (8.5-10.1); Osmolality,Calculated 263.4 MOS/KG (273-304)
[2019-10-05 06:07] LABS: Hypochromasia 1+; Microcytosis Slight; Platelet Estimate Adequate; Segmented Neutrophils 93 % (50-85); Total Cells Counted 100
[2019-10-05] MEDS: metroNIDAZOLE INJ 500 MG in PREMIX 1 EACH IV SCH (08:32)
[2019-10-05] MEDS: DOCUSATE SODIUM 100 MG CAPSULE PO SCH ×2 (08:33→20:10)
[2019-10-05] MEDS: METHOCARBAMOL 500 MG TABLET PO SCH ×2 (08:33→20:10)
[2019-10-05] MEDS: PHENAZOPYRIDINE 95 MG TABLET PO SCH (08:33)
[2019-10-05] MEDS: DULoxetine 30 MG CAPSULE PO SCH (08:33)
[2019-10-05] MEDS: POTASSIUM CHLORIDE 10 MEQ TABLET PO SCH (08:33)
[2019-10-05] MEDS: BISACODYL 5 MG TABLET PO SCH (08:33)
[2019-10-05] MEDS: OXYBUTYNIN XL 5 MG TABLET PO SCH (08:33)
[2019-10-05] MEDS: METOPROLOL SUCCINATE XL 25 MG TABLET PO SCH (08:34)
[2019-10-05] MEDS: PANTOPRAZOLE 40 MG TABLET PO SCH (08:34)
[2019-10-05] MEDS: LEVOFLOXACIN 500 MG TABLET PO SCH (08:34)
[2019-10-05] MEDS: DICYCLOMINE 20 MG TABLET PO SCH ×4 (08:34→20:10)
[2019-10-05] MEDS: ONDANSETRON 4 MG/2 ML VIAL IV PRN (13:01)
[2019-10-05] MEDS: ZALEPLON 5 MG CAPSULE PO PRN (20:14)
[2019-10-06] MEDS: LACTULOSE 20 GM/30 ML UDCUP PO SCH ×6 (04:44→23:54)
[2019-10-06 05:08] LABS: Basophils % 0.1 % (0.0-0.8); Eosinophils # 0.2 10*3/uL (0.0-0.87); Eosinophils % 0.7 % (0.00-10.9); Hematocrit 38.9 VOL% (35.7-47.0); Hemoglobin 12.5 GM/DL (12.0-16.0); Immature Granulocytes % 0.6 %; Immature Granulocytes Absolute 0.13 #; Lymphocytes # 0.4 10*3/uL (1.4-4.0); Lymphocytes % 1.8 % (21.3-54.2); Mean Corpuscular HGB Conc 32.1 GM/DL (32-36); Mean Corpuscular Volume 93.5 FL (87-102); Mean Platelet Volume 9.8 FL (9.6-12.0); Monocytes % 5.7 % (1.7-12.7); Neutrophils % 91.1 % (38.7-73.9); Platelet Count 223 T/CUMM (130-400); Red Blood Count 4.16 MC/CUMM (3.8-5.5); Red Cell Distribution Width 14.1 % (9.3-17.3); White Blood Count 20.4 T/CUMM (4-12)
[2019-10-06 05:31] LABS: Hypochromasia 1+; Lymphocytes 3 % (20-55); Segmented Neutrophils 91 % (50-85); Total Cells Counted 100
[2019-10-06 05:32] LABS: Microcytosis Slight; Platelet Estimate Normal
[2019-10-06 05:36] LABS: Osmolality,Calculated 265.4 MOS/KG (273-304)
[2019-10-06] MEDS: POTASSIUM CHLORIDE 10 MEQ TABLET PO SCH (08:36)
[2019-10-06] MEDS: DOCUSATE SODIUM 100 MG CAPSULE PO SCH ×2 (08:36→20:22)
[2019-10-06] MEDS: DICYCLOMINE 20 MG TABLET PO SCH ×4 (08:36→20:23)
[2019-10-06] MEDS: BISACODYL 5 MG TABLET PO SCH (08:36)
[2019-10-06] MEDS: DULoxetine 30 MG CAPSULE PO SCH (08:36)
[2019-10-06] MEDS: OXYBUTYNIN XL 5 MG TABLET PO SCH (08:36)
[2019-10-06] MEDS: LEVOFLOXACIN 500 MG TABLET PO SCH (08:43)
[2019-10-06] MEDS: PANTOPRAZOLE 40 MG TABLET PO SCH (08:44)
[2019-10-06] MEDS: METHOCARBAMOL 500 MG TABLET PO SCH ×2 (08:44→20:23)
[2019-10-06] MEDS: METOPROLOL SUCCINATE XL 25 MG TABLET PO SCH (08:44)
[2019-10-06] MEDS: NICOTINE 21 MG/24 HR PATCH TRANSDERM PRN (08:45)
[2019-10-06 11:07] LABS: Basophils % 0.1 % (0.0-0.8); Eosinophils # 0.1 10*3/uL (0.0-0.87); Eosinophils % 0.4 % (0.00-10.9); Hematocrit 40.9 VOL% (35.7-47.0); Immature Granulocytes % 0.8 %; Immature Granulocytes Absolute 0.17 #; Lymphocytes # 0.3 10*3/uL (1.4-4.0); Lymphocytes % 1.2 % (21.3-54.2); Mean Corpuscular HGB Conc 31.8 GM/DL (32-36); Mean Corpuscular Volume 93.8 FL (87-102); Mean Platelet Volume 9.6 FL (9.6-12.0); Monocytes % 4.1 % (1.7-12.7); Neutrophils % 93.4 % (38.7-73.9); Platelet Count 217 T/CUMM (130-400); Red Blood Count 4.36 MC/CUMM (3.8-5.5); Red Cell Distribution Width 13.9 % (9.3-17.3); White Blood Count 22.5 T/CUMM (4-12)
[2019-10-06 11:27] LABS: Band Neutrophils 1 % (0-10); Hypochromasia 1+; Lymphocytes 1 % (20-55); Segmented Neutrophils 95 % (50-85); Total Cells Counted 100
[2019-10-06 11:28] LABS: Microcytosis Slight; Platelet Estimate Normal
[2019-10-06 11:29] LABS: Albumin 2.5 G/DL (3.4-5.0); Bilirubin,Total 0.7 MG/DL (0.2-1.0); Calcium 8.9 MG/DL (8.5-10.1); Osmolality,Calculated 264.5 MOS/KG (273-304); Total Protein 6.4 G/DL (6.4-8.3)
[2019-10-06] MEDS ORDERED: LEVOFLOXACIN INJ 100 ML IV ONE (11:53)
[2019-10-06] MEDS ORDERED: SEVOFLURANE 1 UNIT/15 MINUTE INH ONE (12:51)
[2019-10-06] MEDS ORDERED: propofoL 200 MG/20 ML VIAL IV ONE (12:51)
[2019-10-06] MEDS ORDERED: LIDOCAINE 1% 5 ML VIAL ONE (12:51)
[2019-10-06] MEDS ORDERED: fentaNYL 100 MCG/2 ML VIAL ONE (12:52)
[2019-10-06] MEDS ORDERED: MIDAZOLAM 2 MG/2 ML VIAL ONE (12:53)
[2019-10-06] MEDS ORDERED: DEXAMETHASONE 4 MG/1 ML VIAL ONE (12:53)
[2019-10-06] MEDS ORDERED: ETOMIDATE 40 MG/20 ML VIAL IV ONE (12:53)
[2019-10-06] MEDS ORDERED: ONDANSETRON 4 MG/2 ML VIAL ONE (12:53)
[2019-10-06] MEDS ORDERED: ONDANSETRON 4 MG/2 ML VIAL IV PRN (12:54)
[2019-10-06] MEDS ORDERED: PHENYLEPHRINE 1 MG/10 ML SYRINGE IV ONE (12:54)
[2019-10-06] MEDS: HYDROmorphone 2 MG/1 ML VIAL IV PRN ×4 (13:02→13:31)
[2019-10-06] MEDS: PHENAZOPYRIDINE 95 MG TABLET PO SCH ×2 (13:40→17:46)
[2019-10-06] MEDS ORDERED: POTASSIUM CHLORIDE 20 MEQ/15 ML UDCUP PER TUBE PRN (15:16)
[2019-10-06] MEDS: oxyCODONE/ACETAMINOPHEN 5-325 MG TABLET PO PRN ×2 (16:36→20:32)
[2019-10-06] MEDS: ONDANSETRON 4 MG/2 ML VIAL IV PRN (19:27)
[2019-10-06 23:20] VITALS: BP 127/75
[2019-10-06] MEDS: ZALEPLON 5 MG CAPSULE PO PRN (23:34)
[2019-10-06] MEDS: diphenhydrAMINE CAP 25 MG CAPSULE PO PRN (23:34)
[2019-10-07] MEDS: oxyCODONE/ACETAMINOPHEN 5-325 MG TABLET PO PRN (03:55)
[2019-10-07] MEDS: LACTULOSE 20 GM/30 ML UDCUP PO SCH (04:23)
[2019-10-07 05:01] LABS: Basophils % 0.1 % (0.0-0.8); Eosinophils % 0.3 % (0.00-10.9); Hematocrit 38.8 VOL% (35.7-47.0); Hemoglobin 12.5 GM/DL (12.0-16.0); Immature Granulocytes % 0.5 %; Immature Granulocytes Absolute 0.08 #; Lymphocytes # 0.5 10*3/uL (1.4-4.0); Lymphocytes % 3.3 % (21.3-54.2); Mean Corpuscular HGB Conc 32.2 GM/DL (32-36); Mean Corpuscular Volume 91.9 FL (87-102); Mean Platelet Volume 10.4 FL (9.6-12.0); Monocytes % 7.3 % (1.7-12.7); Neutrophils % 88.5 % (38.7-73.9); Platelet Count 218 T/CUMM (130-400); Red Blood Count 4.22 MC/CUMM (3.8-5.5); Red Cell Distribution Width 14.1 % (9.3-17.3); White Blood Count 15.3 T/CUMM (4-12)
[2019-10-07 05:32] LABS: Calcium 8.7 MG/DL (8.5-10.1); Osmolality,Calculated 262.7 MOS/KG (273-304)
[2019-10-07 05:52] LABS: Hypochromasia 1+; Lymphocytes 2 % (20-55); Microcytosis Slight; Segmented Neutrophils 93 % (50-85); Total Cells Counted 100
[2019-10-07 05:53] LABS: Platelet Estimate Normal; Target Cells Slight
[2019-10-07] MEDS ORDERED: HYDROmorphone 2 MG/1 ML VIAL IV PRN (08:15)
== END 2019-10-07 09:40 | disposition hospice, home (50) | DRG 817 ==
LOC: EDUNIT# → EDBD → N.ED 12:56 → N.EDINP 15:51 → N.4E 16:08 → N.CC 10-07 08:02
PROVIDERS: ADMIT Internal Medicine; ATTEND Internal Medicine

== ENCOUNTER 2019-10-17 15:55 | Inpatient (IN) ==
[2019-10-18] MEDS ORDERED: DOCUSATE SODIUM 100 MG CAPSULE PO PRN (00:09)
[2019-10-18] MEDS ORDERED: NALOXONE 0.4 MG/ML VIAL IV PRN (00:35)
[2019-10-18] MEDS: HYDROmorphone PCA 30 MG/30 ML SYRINGE IV SCH (02:08)
[2019-10-18 07:46] LABS: Basophils # 0.1 10*3/uL (0.0-0.2); Basophils % 0.2 % (0.0-0.8); Eosinophils % 0.1 % (0.00-10.9); Hematocrit 25.8 VOL% (35.7-47.0); Hemoglobin 8.4 GM/DL (12.0-16.0); Immature Granulocytes % 0.9 %; Immature Granulocytes Absolute 0.23 #; Lymphocytes # 0.4 10*3/uL (1.4-4.0); Lymphocytes % 1.5 % (21.3-54.2); Mean Corpuscular HGB Conc 32.6 GM/DL (32-36); Mean Corpuscular Volume 94.9 FL (87-102); Mean Platelet Volume 10.6 FL (9.6-12.0); Monocytes % 4.3 % (1.7-12.7); Platelet Count 273 T/CUMM (130-400); Red Blood Count 2.72 MC/CUMM (3.8-5.5); Red Cell Distribution Width 15.1 % (9.3-17.3)
[2019-10-18 08:07] LABS: Band Neutrophils 1 % (0-10); Hypochromasia 1+; Lymphocytes 1 % (20-55); Segmented Neutrophils 92 % (50-85); Total Cells Counted 100
[2019-10-18 08:08] LABS: Microcytosis 1+
[2019-10-18 08:12] LABS: Albumin 1.4 G/DL (3.4-5.0); Bilirubin,Total 0.6 MG/DL (0.2-1.0); Calcium 8.4 MG/DL (8.5-10.1); Osmolality,Calculated 266.2 MOS/KG (273-304); Total Protein 5.4 G/DL (6.4-8.3)
[2019-10-18] MEDS: ENOXAPARIN 40 MG/0.4 ML SYRINGE SUBCUT SCH (09:15)
[2019-10-18] MEDS: PANTOPRAZOLE 40 MG TABLET PO SCH (09:15)
[2019-10-18] MEDS ORDERED: CYCLOBENZAPRINE 10 MG TABLET PO PRN (11:25)
[2019-10-18] MEDS ORDERED: POTASSIUM CHLORIDE 20 MEQ TABLET PO ONE (12:12)
[2019-10-18] MEDS ORDERED: amLODIPine 5 MG TABLET PO SCH (12:30)
[2019-10-18] MEDS ORDERED: cefTRIAXone 1,000 MG in SYRINGE 1 EACH IV SCH (12:30)
[2019-10-18] MEDS ORDERED: AZITHROMYCIN INJ 500 MG in SODIUM CHLORIDE 0.9% 250 ML IV SCH (13:00)
[2019-10-18] MEDS: METOPROLOL TARTRATE 25 MG TABLET PO SCH ×2 (13:29→20:18)
[2019-10-18] MEDS: fentaNYL 25 MCG/HR PATCH TRANSDERM SCH (13:30)
[2019-10-18] MEDS: CEFEPIME 1,000 MG in SODIUM CHLORIDE 0.9% 100 ML IV SCH ×2 (13:31→20:18)
[2019-10-18] MEDS ORDERED: MAGNESIUM SULF RIDER 4 GM in PREMIX 1 EACH IV PRN (15:02)
[2019-10-18] MEDS ORDERED: MAGNESIUM SULF RIDER 2 GM in PREMIX 1 EACH IV PRN (15:02)
[2019-10-18] MEDS: METHOCARBAMOL 500 MG TABLET PO PRN ×2 (15:24→20:18)
[2019-10-18] MEDS: GABAPENTIN 300 MG CAPSULE PO SCH ×2 (15:24→20:18)
[2019-10-18] MEDS: ACETAMINOPHEN 325 MG TABLET PO PRN (17:19)
[2019-10-18] MEDS: VANCOMYCIN INJ 500 MG in SODIUM CHLORIDE 0.9% 100 ML IV SCH (17:24)
[2019-10-18] MEDS: SIMETHICONE CHEW 125 MG TABLET PO PRN (20:17)
[2019-10-18] MEDS: CYCLOBENZAPRINE 10 MG TABLET PO PRN (20:18)
[2019-10-18] MEDS: DULoxetine 30 MG CAPSULE PO SCH (22:34)
[2019-10-18] MEDS: SENNA 8.6 MG TABLET PO SCH (22:34)
[2019-10-19] MEDS: HYDROmorphone PCA 30 MG/30 ML SYRINGE IV SCH ×2 (02:00→06:19)
[2019-10-19 04:54] LABS: Basophils # 0.1 10*3/uL (0.0-0.2); Basophils % 0.2 % (0.0-0.8); Eosinophils % 0.1 % (0.00-10.9); Hematocrit 28.4 VOL% (35.7-47.0); Hemoglobin 9.3 GM/DL (12.0-16.0); Immature Granulocytes % 1.1 %; Immature Granulocytes Absolute 0.39 #; Lymphocytes # 0.3 10*3/uL (1.4-4.0); Lymphocytes % 0.9 % (21.3-54.2); Mean Corpuscular HGB Conc 32.7 GM/DL (32-36); Mean Corpuscular Volume 94.7 FL (87-102); Mean Platelet Volume 10.4 FL (9.6-12.0); Monocytes % 5.1 % (1.7-12.7); Neutrophils % 92.6 % (38.7-73.9); Platelet Count 330 T/CUMM (130-400); Red Cell Distribution Width 15.6 % (9.3-17.3); White Blood Count 34.8 T/CUMM (4-12)
[2019-10-19 05:20] LABS: Calcium 8.6 MG/DL (8.5-10.1); Osmolality,Calculated 278.3 MOS/KG (273-304)
[2019-10-19] MEDS: CEFEPIME 1,000 MG in SODIUM CHLORIDE 0.9% 100 ML IV SCH ×3 (05:41→21:03)
[2019-10-19 06:10] LABS: Hypochromasia 1+; Lymphocytes 2 % (20-55); Ovalocytes Slight; Platelet Estimate Adequate; Segmented Neutrophils 96 % (50-85); Total Cells Counted 100
[2019-10-19 06:11] LABS: Microcytosis 1+
[2019-10-19] MEDS: VANCOMYCIN INJ 500 MG in SODIUM CHLORIDE 0.9% 100 ML IV SCH ×2 (06:17→18:16)
[2019-10-19] MEDS ORDERED: POTASSIUM CHLORIDE RIDER 10 MEQ in PREMIX 1 EACH IV PRN (07:42)
[2019-10-19] MEDS ORDERED: POTASSIUM CHLORIDE 20 MEQ TABLET PO ONE (08:01)
[2019-10-19] MEDS: GABAPENTIN 300 MG CAPSULE PO SCH ×3 (08:31→21:03)
[2019-10-19] MEDS: PANTOPRAZOLE 40 MG TABLET PO SCH (08:31)
[2019-10-19] MEDS: SENNA 8.6 MG TABLET PO SCH ×2 (08:31→21:02)
[2019-10-19] MEDS: METOPROLOL TARTRATE 25 MG TABLET PO SCH ×2 (08:31→21:02)
[2019-10-19] MEDS: ENOXAPARIN 40 MG/0.4 ML SYRINGE SUBCUT SCH ×2 (08:32→08:46)
[2019-10-19] MEDS: POTASSIUM CHLORIDE 20 MEQ/15 ML UDCUP PER TUBE PRN ×3 (18:18→22:41)
[2019-10-19] MEDS: DULoxetine 30 MG CAPSULE PO SCH (21:01)
[2019-10-19] MEDS: CYCLOBENZAPRINE 10 MG TABLET PO PRN (21:02)
[2019-10-20] MEDS: HYDROmorphone PCA 30 MG/30 ML SYRINGE IV SCH ×2 (00:13→06:51)
[2019-10-20] MEDS: CEFEPIME 1,000 MG in SODIUM CHLORIDE 0.9% 100 ML IV SCH ×3 (05:35→20:41)
[2019-10-20] MEDS ORDERED: VANCOMYCIN INJ 750 MG in SODIUM CHLORIDE 0.9% 250 ML IV SCH (06:00)
[2019-10-20 06:07] LABS: Basophils % 0.1 % (0.0-0.8); Eosinophils # 0.2 10*3/uL (0.0-0.87); Eosinophils % 0.8 % (0.00-10.9); Hematocrit 22.9 VOL% (35.7-47.0); Hemoglobin 7.4 GM/DL (12.0-16.0); Immature Granulocytes % 0.6 %; Immature Granulocytes Absolute 0.14 #; Lymphocytes # 0.4 10*3/uL (1.4-4.0); Lymphocytes % 1.8 % (21.3-54.2); Mean Corpuscular HGB Conc 32.3 GM/DL (32-36); Neutrophils % 90.7 % (38.7-73.9); Platelet Count 296 T/CUMM (130-400); Red Blood Count 2.36 MC/CUMM (3.8-5.5); Red Cell Distribution Width 15.6 % (9.3-17.3); White Blood Count 21.6 T/CUMM (4-12)
[2019-10-20 06:36] LABS: Calcium 7.9 MG/DL (8.5-10.1); Osmolality,Calculated 281.3 MOS/KG (273-304)
[2019-10-20 06:38] LABS: Calcium 7.8 MG/DL (8.5-10.1); Osmolality,Calculated 281.3 MOS/KG (273-304)
[2019-10-20 06:39] LABS: Anisocytosis 2+; Band Neutrophils 2 % (0-10); Eosinophils 1 % (0-10); Lymphocytes 2 % (20-55); Macrocytosis 1+; Platelet Estimate Normal; Segmented Neutrophils 87 % (50-85); Total Cells Counted 100
[2019-10-20] MEDS: SENNA 8.6 MG TABLET PO SCH (08:37)
[2019-10-20] MEDS: GABAPENTIN 300 MG CAPSULE PO SCH ×3 (08:37→20:41)
[2019-10-20] MEDS: PANTOPRAZOLE 40 MG TABLET PO SCH (08:37)
[2019-10-20] MEDS: METOPROLOL TARTRATE 25 MG TABLET PO SCH ×2 (08:37→20:41)
[2019-10-20 10:10] LABS: Hematocrit 27.4 VOL% (35.7-47.0); Hemoglobin 8.6 GM/DL (12.0-16.0)
[2019-10-20] MEDS: ALBUTEROL/IPRATROPIUM 3 ML NEB RESP TX SCH ×2 (12:25→19:24)
[2019-10-20 13:58] LABS: Hematocrit 23.9 VOL% (35.7-47.0); Hemoglobin 7.8 GM/DL (12.0-16.0)
[2019-10-20] MEDS ORDERED: VANCOMYCIN INJ 500 MG in SODIUM CHLORIDE 0.9% 100 ML IV SCH (14:00)
[2019-10-20] MEDS ORDERED: NALOXONE 0.4 MG/ML VIAL IV PRN (15:24)
[2019-10-20] MEDS: POTASSIUM CHLORIDE 20 MEQ/15 ML UDCUP PER TUBE PRN ×2 (17:23→20:40)
[2019-10-20 19:56] LABS: Hematocrit 25.7 VOL% (35.7-47.0); Hemoglobin 8.2 GM/DL (12.0-16.0)
[2019-10-20] MEDS: CYCLOBENZAPRINE 10 MG TABLET PO PRN (20:41)
[2019-10-20] MEDS: DULoxetine 30 MG CAPSULE PO SCH (20:41)
[2019-10-21] MEDS: POTASSIUM CHLORIDE 20 MEQ/15 ML UDCUP PER TUBE PRN (00:20)
[2019-10-21] MEDS: ALBUTEROL/IPRATROPIUM 3 ML NEB RESP TX SCH ×4 (01:52→19:42)
[2019-10-21 02:02] LABS: Hematocrit 22.6 VOL% (35.7-47.0); Hemoglobin 7.4 GM/DL (12.0-16.0)
[2019-10-21 02:19] LABS: Calcium 8.2 MG/DL (8.5-10.1); Osmolality,Calculated 270.8 MOS/KG (273-304)
[2019-10-21 05:28] LABS: Basophils # 0.1 10*3/uL (0.0-0.2); Basophils % 0.2 % (0.0-0.8); Eosinophils # 0.1 10*3/uL (0.0-0.87); Eosinophils % 0.5 % (0.00-10.9); Hematocrit 22.3 VOL% (35.7-47.0); Hemoglobin 7.3 GM/DL (12.0-16.0); Immature Granulocytes % 0.7 %; Immature Granulocytes Absolute 0.18 #; Lymphocytes # 0.4 10*3/uL (1.4-4.0); Lymphocytes % 1.3 % (21.3-54.2); Mean Corpuscular HGB Conc 32.7 GM/DL (32-36); Mean Corpuscular Volume 95.3 FL (87-102); Mean Platelet Volume 10.2 FL (9.6-12.0); Monocytes % 5.3 % (1.7-12.7); Platelet Count 277 T/CUMM (130-400); Red Blood Count 2.34 MC/CUMM (3.8-5.5); Red Cell Distribution Width 15.5 % (9.3-17.3); White Blood Count 27.3 T/CUMM (4-12)
[2019-10-21] MEDS: CEFEPIME 1,000 MG in SODIUM CHLORIDE 0.9% 100 ML IV SCH ×3 (05:34→20:03)
[2019-10-21 05:56] LABS: Platelet Estimate Adequate; Segmented Neutrophils 97 % (50-85); Total Cells Counted 100
[2019-10-21 05:57] LABS: Hypochromasia 2+; Microcytosis Slight
[2019-10-21] MEDS: HYDROmorphone PCA 30 MG/30 ML SYRINGE IV SCH ×2 (05:57→06:11)
[2019-10-21] MEDS: ONDANSETRON 4 MG/2 ML VIAL IV PRN (06:06)
[2019-10-21] MEDS: METOPROLOL TARTRATE 25 MG TABLET PO SCH ×2 (08:52→20:03)
[2019-10-21] MEDS: fentaNYL 25 MCG/HR PATCH TRANSDERM SCH (08:53)
[2019-10-21] MEDS: GABAPENTIN 300 MG CAPSULE PO SCH ×3 (08:53→22:55)
[2019-10-21] MEDS: METHOCARBAMOL 500 MG TABLET PO PRN ×2 (08:53→20:02)
[2019-10-21] MEDS: PANTOPRAZOLE 40 MG TABLET PO SCH (08:53)
[2019-10-21] MEDS: SENNA 8.6 MG TABLET PO SCH (12:57)
[2019-10-21] MEDS: OXYBUTYNIN XL 5 MG TABLET PO SCH (12:57)
[2019-10-21] MEDS: TAMSULOSIN 0.4 MG CAPSULE PO SCH (12:57)
[2019-10-21] MEDS: SIMETHICONE CHEW 125 MG TABLET PO PRN (19:58)
[2019-10-21] MEDS: CYCLOBENZAPRINE 10 MG TABLET PO PRN (19:58)
[2019-10-21] MEDS: DULoxetine 30 MG CAPSULE PO SCH (20:02)
[2019-10-22] MEDS: ALBUTEROL/IPRATROPIUM 3 ML NEB RESP TX SCH ×4 (01:30→20:01)
[2019-10-22 04:31] LABS: Basophils % 0.1 % (0.0-0.8); Eosinophils # 0.1 10*3/uL (0.0-0.87); Eosinophils % 0.5 % (0.00-10.9); Hemoglobin 6.7 GM/DL (12.0-16.0); Immature Granulocytes % 0.9 %; Lymphocytes # 0.4 10*3/uL (1.4-4.0); Lymphocytes % 1.7 % (21.3-54.2); Mean Corpuscular HGB Conc 31.9 GM/DL (32-36); Mean Corpuscular Volume 95.9 FL (87-102); Mean Platelet Volume 10.1 FL (9.6-12.0); Monocytes % 4.8 % (1.7-12.7); Platelet Count 259 T/CUMM (130-400); Red Blood Count 2.19 MC/CUMM (3.8-5.5); Red Cell Distribution Width 15.3 % (9.3-17.3); White Blood Count 21.8 T/CUMM (4-12)
[2019-10-22] MEDS: CEFEPIME 1,000 MG in SODIUM CHLORIDE 0.9% 100 ML IV SCH ×3 (05:00→20:09)
[2019-10-22 05:08] LABS: Calcium 7.8 MG/DL (8.5-10.1); Osmolality,Calculated 272.7 MOS/KG (273-304)
[2019-10-22 06:07] LABS: Anisocytosis 1+; Hypochromasia 1+; Lymphocytes 5 % (20-55); Platelet Estimate Adequate; Segmented Neutrophils 92 % (50-85); Total Cells Counted 100
[2019-10-22] MEDS: POTASSIUM CHLORIDE 20 MEQ/15 ML UDCUP PER TUBE PRN ×4 (06:23→15:16)
[2019-10-22] MEDS: ONDANSETRON 4 MG/2 ML VIAL IV PRN ×2 (06:25→12:26)
[2019-10-22] MEDS ORDERED: POTASSIUM CHLORIDE 20 MEQ TABLET PO ONE (06:57)
[2019-10-22] MEDS ORDERED: SODIUM CHLORIDE 0.9% 1,000 ML IV PRN (06:58)
[2019-10-22] MEDS: TAMSULOSIN 0.4 MG CAPSULE PO SCH (08:47)
[2019-10-22] MEDS: SENNA 8.6 MG TABLET PO SCH (08:48)
[2019-10-22] MEDS: METOPROLOL TARTRATE 25 MG TABLET PO SCH ×2 (08:48→20:09)
[2019-10-22] MEDS: METHOCARBAMOL 500 MG TABLET PO PRN ×3 (08:48→20:08)
[2019-10-22] MEDS: PANTOPRAZOLE 40 MG TABLET PO SCH (08:48)
[2019-10-22] MEDS: GABAPENTIN 300 MG CAPSULE PO SCH ×3 (08:49→20:08)
[2019-10-22] MEDS: OXYBUTYNIN XL 5 MG TABLET PO SCH (09:55)
[2019-10-22] MEDS: fentaNYL 50 MCG/HR PATCH TRANSDERM SCH (12:29)
[2019-10-22] MEDS ORDERED: FUROSEMIDE 20 MG/2 ML VIAL IV ONE (14:01)
[2019-10-22] MEDS: DULoxetine 30 MG CAPSULE PO SCH (20:08)
[2019-10-22] MEDS: CYCLOBENZAPRINE 10 MG TABLET PO PRN (20:08)
[2019-10-22] MEDS: SIMETHICONE CHEW 125 MG TABLET PO PRN (20:08)
[2019-10-23 00:23] LABS: Apearance,Urine Slightly Hazy (Clear); Bilirubin,Urine Negative (Negative); Blood, Urine Large mg/dL (Negative); Glucose,Urine (UA) Negative (Negative); Hyaline Casts,Urine 4 /LPF (0-3); Ketones,Urine Negative (Negative); Mucus,Urine Occasional /LPF (Occasional); Nitrite,Urine Negative (Negative); Protein,Urine Negative; RBC,Urine 119 /HPF (0-4); Squamous Epithelial Cell,Urine Occasional /HPF (0-10); Urine Color Yellow (Yellow); Urine Specific Gravity 1.011 (1.001-1.035); Urine Urobilinogen < 2.0 EU/DL (0.2-1.0); WBC,Urine 102 /HPF (0-6)
[2019-10-23] MEDS: ALBUTEROL/IPRATROPIUM 3 ML NEB RESP TX SCH ×4 (00:38→19:37)
[2019-10-23] MEDS: CEFEPIME 1,000 MG in SODIUM CHLORIDE 0.9% 100 ML IV SCH ×3 (05:19→20:35)
[2019-10-23 05:54] LABS: Basophils % 0.1 % (0.0-0.8); Eosinophils # 0.1 10*3/uL (0.0-0.87); Eosinophils % 0.7 % (0.00-10.9); Hematocrit 27.8 VOL% (35.7-47.0); Hemoglobin 9.4 GM/DL (12.0-16.0); Immature Granulocytes % 0.7 %; Immature Granulocytes Absolute 0.14 #; Lymphocytes # 0.4 10*3/uL (1.4-4.0); Lymphocytes % 1.8 % (21.3-54.2); Mean Corpuscular HGB Conc 33.8 GM/DL (32-36); Mean Platelet Volume 10.9 FL (9.6-12.0); Monocytes % 4.8 % (1.7-12.7); Neutrophils % 91.9 % (38.7-73.9); Platelet Count 238 T/CUMM (130-400); Red Blood Count 3.09 MC/CUMM (3.8-5.5); White Blood Count 20.9 T/CUMM (4-12)
[2019-10-23 06:12] LABS: Calcium 8.5 MG/DL (8.5-10.1); Osmolality,Calculated 272.8 MOS/KG (273-304)
[2019-10-23] MEDS ORDERED: SENNA 8.6 MG TABLET PO PRN (08:09)
[2019-10-23] MEDS: METHOCARBAMOL 500 MG TABLET PO PRN ×2 (09:03→13:36)
[2019-10-23] MEDS: METOPROLOL TARTRATE 25 MG TABLET PO SCH ×2 (09:03→21:30)
[2019-10-23] MEDS: PANTOPRAZOLE 40 MG TABLET PO SCH (09:03)
[2019-10-23] MEDS: TAMSULOSIN 0.4 MG CAPSULE PO SCH (09:03)
[2019-10-23] MEDS: GABAPENTIN 300 MG CAPSULE PO SCH ×3 (09:03→21:35)
[2019-10-23] MEDS: OXYBUTYNIN XL 5 MG TABLET PO SCH (09:03)
[2019-10-23 11:28] LABS: Lymphocytes 9 % (20-55); Segmented Neutrophils 88 % (50-85); Total Cells Counted 100
[2019-10-23 11:29] LABS: Anisocytosis 1+; Hypochromasia Slight; Platelet Estimate Normal; Schistocytes Slight; Spherocytes Few
[2019-10-23] MEDS: DULoxetine 30 MG CAPSULE PO SCH (21:30)
[2019-10-24] MEDS: ALBUTEROL/IPRATROPIUM 3 ML NEB RESP TX SCH ×4 (00:48→19:36)
[2019-10-24] MEDS: CEFEPIME 1,000 MG in SODIUM CHLORIDE 0.9% 100 ML IV SCH ×2 (04:38→13:28)
[2019-10-24 05:32] LABS: Calcium 8.4 MG/DL (8.5-10.1); Osmolality,Calculated 271.8 MOS/KG (273-304)
[2019-10-24] MEDS: POTASSIUM CHLORIDE 20 MEQ/15 ML UDCUP PER TUBE PRN ×2 (05:42→13:26)
[2019-10-24] MEDS: TAMSULOSIN 0.4 MG CAPSULE PO SCH (09:30)
[2019-10-24] MEDS: OXYBUTYNIN XL 5 MG TABLET PO SCH (09:30)
[2019-10-24] MEDS: GABAPENTIN 300 MG CAPSULE PO SCH ×3 (09:30→21:34)
[2019-10-24] MEDS: PANTOPRAZOLE 40 MG TABLET PO SCH (09:30)
[2019-10-24] MEDS: METOPROLOL TARTRATE 25 MG TABLET PO SCH ×2 (09:30→21:34)
[2019-10-24] MEDS: METHOCARBAMOL 500 MG TABLET PO PRN ×2 (13:26→18:11)
[2019-10-24] MEDS: SIMETHICONE CHEW 125 MG TABLET PO PRN (13:28)
[2019-10-24] MEDS ORDERED: FLUCONAZOLE 200 MG TABLET PO ONE (13:58)
[2019-10-24] MEDS: DULoxetine 30 MG CAPSULE PO SCH (21:34)
[2019-10-24] MEDS: CEFUROXIME 500 MG TABLET PO SCH (21:34)
[2019-10-24] MEDS: CYCLOBENZAPRINE 10 MG TABLET PO PRN (21:34)
[2019-10-25] MEDS: ALBUTEROL/IPRATROPIUM 3 ML NEB RESP TX SCH ×4 (00:18→20:02)
[2019-10-25] MEDS: PANTOPRAZOLE 40 MG TABLET PO SCH (08:49)
[2019-10-25] MEDS: TAMSULOSIN 0.4 MG CAPSULE PO SCH (08:49)
[2019-10-25] MEDS: fentaNYL 50 MCG/HR PATCH TRANSDERM SCH (08:49)
[2019-10-25] MEDS: GABAPENTIN 300 MG CAPSULE PO SCH ×2 (08:49→21:50)
[2019-10-25] MEDS: METOPROLOL TARTRATE 25 MG TABLET PO SCH ×2 (08:49→21:50)
[2019-10-25] MEDS: FLUCONAZOLE 100 MG TABLET PO SCH (08:50)
[2019-10-25] MEDS: CEFUROXIME 500 MG TABLET PO SCH ×2 (08:50→21:50)
[2019-10-25] MEDS: HYDROmorphone PCA 30 MG/30 ML SYRINGE IV SCH (08:50)
[2019-10-25] MEDS: OXYBUTYNIN XL 5 MG TABLET PO SCH (08:50)
[2019-10-25] MEDS: ONDANSETRON 4 MG/2 ML VIAL IV PRN (09:02)
[2019-10-25] MEDS: POTASSIUM CHLORIDE 20 MEQ/15 ML UDCUP PER TUBE PRN ×3 (10:43→16:14)
[2019-10-25] MEDS: DULoxetine 30 MG CAPSULE PO SCH (21:50)
[2019-10-26] MEDS: ALBUTEROL/IPRATROPIUM 3 ML NEB RESP TX SCH ×4 (00:41→20:29)
[2019-10-26] MEDS: HYDROmorphone PCA 30 MG/30 ML SYRINGE IV SCH ×3 (10:02→18:59)
[2019-10-26] MEDS: PANTOPRAZOLE 40 MG TABLET PO SCH (10:05)
[2019-10-26] MEDS: GABAPENTIN 300 MG CAPSULE PO SCH ×2 (10:05→20:58)
[2019-10-26] MEDS: CEFUROXIME 500 MG TABLET PO SCH ×2 (10:05→20:59)
[2019-10-26] MEDS: FLUCONAZOLE 100 MG TABLET PO SCH (10:05)
[2019-10-26] MEDS: METOPROLOL TARTRATE 25 MG TABLET PO SCH ×2 (10:05→20:59)
[2019-10-26] MEDS: OXYBUTYNIN XL 5 MG TABLET PO SCH (10:05)
[2019-10-26] MEDS: TAMSULOSIN 0.4 MG CAPSULE PO SCH (10:05)
[2019-10-26] MEDS: SIMETHICONE CHEW 125 MG TABLET PO PRN (18:12)
[2019-10-26] MEDS: DULoxetine 30 MG CAPSULE PO SCH (20:59)
[2019-10-27] MEDS: ALBUTEROL/IPRATROPIUM 3 ML NEB RESP TX SCH ×4 (01:59→20:15)
[2019-10-27] MEDS: FLUCONAZOLE 100 MG TABLET PO SCH (09:52)
[2019-10-27] MEDS: METHOCARBAMOL 500 MG TABLET PO PRN (09:52)
[2019-10-27] MEDS: METOPROLOL TARTRATE 25 MG TABLET PO SCH ×2 (09:52→21:03)
[2019-10-27] MEDS: PANTOPRAZOLE 40 MG TABLET PO SCH (09:52)
[2019-10-27] MEDS: CEFUROXIME 500 MG TABLET PO SCH (09:53)
[2019-10-27] MEDS: SIMETHICONE CHEW 125 MG TABLET PO PRN (09:53)
[2019-10-27] MEDS: GABAPENTIN 300 MG CAPSULE PO SCH ×2 (09:53→21:03)
[2019-10-27] MEDS: OXYBUTYNIN XL 5 MG TABLET PO SCH (09:53)
[2019-10-27] MEDS: TAMSULOSIN 0.4 MG CAPSULE PO SCH (09:53)
[2019-10-27] MEDS: oxyCODONE IR 5 MG TABLET PO PRN ×2 (16:38→21:03)
[2019-10-27] MEDS: ONDANSETRON 4 MG/2 ML VIAL IV PRN (16:38)
[2019-10-27] MEDS: HYDROmorphone PCA 30 MG/30 ML SYRINGE IV SCH (18:56)
[2019-10-27] MEDS: DULoxetine 30 MG CAPSULE PO SCH (21:03)
[2019-10-27] MEDS: CYCLOBENZAPRINE 10 MG TABLET PO PRN (21:03)
[2019-10-28] MEDS: ALBUTEROL/IPRATROPIUM 3 ML NEB RESP TX SCH ×4 (00:41→20:06)
[2019-10-28 05:12] LABS: Basophils % 0.2 % (0.0-0.8); Eosinophils # 0.1 10*3/uL (0.0-0.87); Eosinophils % 0.4 % (0.00-10.9); Hemoglobin 8.3 GM/DL (12.0-16.0); Immature Granulocytes % 0.7 %; Immature Granulocytes Absolute 0.13 #; Lymphocytes # 0.2 10*3/uL (1.4-4.0); Lymphocytes % 1.2 % (21.3-54.2); Mean Corpuscular HGB Conc 31.9 GM/DL (32-36); Mean Corpuscular Volume 95.9 FL (87-102); Monocytes % 5.8 % (1.7-12.7); Neutrophils % 91.7 % (38.7-73.9); Platelet Count 237 T/CUMM (130-400); Red Blood Count 2.71 MC/CUMM (3.8-5.5); White Blood Count 19.9 T/CUMM (4-12)
[2019-10-28 05:28] LABS: Calcium 8.1 MG/DL (8.5-10.1); Osmolality,Calculated 272.7 MOS/KG (273-304)
[2019-10-28 05:55] LABS: Eosinophils 1 % (0-10); Lymphocytes 2 % (20-55); Platelet Estimate Normal; Segmented Neutrophils 96 % (50-85); Total Cells Counted 100
[2019-10-28 05:56] LABS: Hypochromasia 1+; Microcytosis 1+
[2019-10-28] MEDS: OXYBUTYNIN XL 5 MG TABLET PO SCH (09:19)
[2019-10-28] MEDS: PANTOPRAZOLE 40 MG TABLET PO SCH (09:19)
[2019-10-28] MEDS: METOPROLOL TARTRATE 25 MG TABLET PO SCH ×2 (09:19→21:02)
[2019-10-28] MEDS: GABAPENTIN 300 MG CAPSULE PO SCH ×2 (09:19→21:03)
[2019-10-28] MEDS: FLUCONAZOLE 100 MG TABLET PO SCH (09:19)
[2019-10-28] MEDS: fentaNYL 50 MCG/HR PATCH TRANSDERM SCH (09:19)
[2019-10-28] MEDS: TAMSULOSIN 0.4 MG CAPSULE PO SCH (09:26)
[2019-10-28] MEDS: METHOCARBAMOL 500 MG TABLET PO PRN (18:11)
[2019-10-28] MEDS: oxyCODONE IR 5 MG TABLET PO PRN (21:01)
[2019-10-28] MEDS: CYCLOBENZAPRINE 10 MG TABLET PO PRN (21:01)
[2019-10-28] MEDS: DULoxetine 30 MG CAPSULE PO SCH (21:02)
[2019-10-28] MEDS: HYDROmorphone PCA 30 MG/30 ML SYRINGE IV SCH (22:15)
[2019-10-29 04:53] LABS: Osmolality,Calculated 272.5 MOS/KG (273-304)
[2019-10-29 05:00] LABS: Basophils % 0.2 % (0.0-0.8); Eosinophils # 0.2 10*3/uL (0.0-0.87); Eosinophils % 1.5 % (0.00-10.9); Hematocrit 24.4 VOL% (35.7-47.0); Hemoglobin 7.9 GM/DL (12.0-16.0); Immature Granulocytes % 0.5 %; Immature Granulocytes Absolute 0.09 #; Lymphocytes # 0.4 10*3/uL (1.4-4.0); Lymphocytes % 2.2 % (21.3-54.2); Mean Corpuscular HGB Conc 32.4 GM/DL (32-36); Mean Corpuscular Volume 93.8 FL (87-102); Mean Platelet Volume 10.6 FL (9.6-12.0); Monocytes % 5.6 % (1.7-12.7); Platelet Count 202 T/CUMM (130-400); Red Cell Distribution Width 15.2 % (9.3-17.3); White Blood Count 16.5 T/CUMM (4-12)
[2019-10-29] MEDS: oxyCODONE IR 5 MG TABLET PO PRN (05:33)
[2019-10-29] MEDS: POTASSIUM CHLORIDE 20 MEQ/15 ML UDCUP PER TUBE PRN ×4 (05:33→12:22)
[2019-10-29 06:08] LABS: Band Neutrophils 1 % (0-10); Eosinophils 2 % (0-10); Lymphocytes 2 % (20-55); Platelet Estimate Adequate; Segmented Neutrophils 89 % (50-85); Total Cells Counted 100
[2019-10-29 06:09] LABS: Hypochromasia 2+; Microcytosis 1+; Ovalocytes Slight
[2019-10-29] MEDS: ALBUTEROL/IPRATROPIUM 3 ML NEB RESP TX SCH ×2 (07:42→08:03)
[2019-10-29] MEDS: FLUCONAZOLE 100 MG TABLET PO SCH (08:56)
[2019-10-29] MEDS: METOPROLOL TARTRATE 25 MG TABLET PO SCH ×2 (08:56→21:51)
[2019-10-29] MEDS: TAMSULOSIN 0.4 MG CAPSULE PO SCH (08:56)
[2019-10-29] MEDS: PANTOPRAZOLE 40 MG TABLET PO SCH (08:56)
[2019-10-29] MEDS: GABAPENTIN 300 MG CAPSULE PO SCH ×2 (08:57→21:51)
[2019-10-29] MEDS: OXYBUTYNIN XL 5 MG TABLET PO SCH (08:57)
[2019-10-29] MEDS ORDERED: POTASSIUM CHLORIDE 20 MEQ/15 ML UDCUP PO ONE (11:20)
[2019-10-29] MEDS ORDERED: ALBUTEROL/IPRATROPIUM 3 ML NEB RESP TX PRN (11:21)
[2019-10-29] MEDS: CYCLOBENZAPRINE 10 MG TABLET PO PRN (21:51)
[2019-10-29] MEDS: DULoxetine 30 MG CAPSULE PO SCH (21:51)
[2019-10-30 06:22] LABS: Calcium 8.1 MG/DL (8.5-10.1); Osmolality,Calculated 277.3 MOS/KG (273-304)
[2019-10-30] MEDS: POTASSIUM CHLORIDE 20 MEQ/15 ML UDCUP PER TUBE PRN ×2 (08:41→11:37)
[2019-10-30] MEDS: PANTOPRAZOLE 40 MG TABLET PO SCH (08:42)
[2019-10-30] MEDS: TAMSULOSIN 0.4 MG CAPSULE PO SCH (08:42)
[2019-10-30] MEDS: FLUCONAZOLE 100 MG TABLET PO SCH (08:42)
[2019-10-30] MEDS: OXYBUTYNIN XL 5 MG TABLET PO SCH (08:42)
[2019-10-30] MEDS: GABAPENTIN 300 MG CAPSULE PO SCH ×2 (08:42→20:20)
[2019-10-30] MEDS: METOPROLOL TARTRATE 25 MG TABLET PO SCH ×2 (08:42→20:19)
[2019-10-30] MEDS: HYDROmorphone PCA 30 MG/30 ML SYRINGE IV SCH (11:38)
[2019-10-30] MEDS: DULoxetine 30 MG CAPSULE PO SCH (20:19)
[2019-10-30] MEDS: ONDANSETRON 4 MG/2 ML VIAL IV PRN (20:20)
[2019-10-30] MEDS: CYCLOBENZAPRINE 10 MG TABLET PO PRN (20:20)
[2019-10-31] MEDS: HYDROmorphone PCA 30 MG/30 ML SYRINGE IV SCH ×2 (08:24→08:25)
[2019-10-31] MEDS: FLUCONAZOLE 100 MG TABLET PO SCH (08:25)
[2019-10-31] MEDS: METOPROLOL TARTRATE 25 MG TABLET PO SCH ×2 (08:26→20:21)
[2019-10-31] MEDS: GABAPENTIN 300 MG CAPSULE PO SCH ×2 (08:26→20:21)
[2019-10-31] MEDS: PANTOPRAZOLE 40 MG TABLET PO SCH (08:26)
[2019-10-31] MEDS: TAMSULOSIN 0.4 MG CAPSULE PO SCH (08:26)
[2019-10-31] MEDS: OXYBUTYNIN XL 5 MG TABLET PO SCH (08:26)
[2019-10-31] MEDS: ONDANSETRON 4 MG/2 ML VIAL IV PRN ×2 (08:27→17:20)
[2019-10-31] MEDS: POTASSIUM CHLORIDE 20 MEQ/15 ML UDCUP PER TUBE PRN ×2 (08:27→10:12)
[2019-10-31] MEDS: DULoxetine 30 MG CAPSULE PO SCH (20:21)
[2019-10-31] MEDS: CYCLOBENZAPRINE 10 MG TABLET PO PRN (23:08)
[2019-11-01 08:31] LABS: Basophils % 0.1 % (0.0-0.8); Eosinophils # 0.3 10*3/uL (0.0-0.87); Eosinophils % 1.3 % (0.00-10.9); Hematocrit 30.6 VOL% (35.7-47.0); Immature Granulocytes % 0.8 %; Immature Granulocytes Absolute 0.17 #; Lymphocytes # 0.5 10*3/uL (1.4-4.0); Lymphocytes % 2.4 % (21.3-54.2); Mean Corpuscular HGB Conc 32.4 GM/DL (32-36); Mean Corpuscular Volume 93.9 FL (87-102); Mean Platelet Volume 9.8 FL (9.6-12.0); Monocytes % 4.8 % (1.7-12.7); Neutrophils % 90.6 % (38.7-73.9); Platelet Count 240 T/CUMM (130-400)
[2019-11-01 08:40] LABS: Hemoglobin 9.9 GM/DL (12.0-16.0); Red Blood Count 3.26 MC/CUMM (3.8-5.5); White Blood Count 21.5 T/CUMM (4-12)
[2019-11-01 08:47] LABS: Calcium 8.3 MG/DL (8.5-10.1)
[2019-11-01 08:51] LABS: Eosinophils 1 % (0-10); Lymphocytes 1 % (20-55); Segmented Neutrophils 95 % (50-85); Total Cells Counted 100
[2019-11-01 08:52] LABS: Hypochromasia 1+; Microcytosis 1+; Platelet Estimate Normal
[2019-11-01] MEDS: HYDROmorphone PCA 30 MG/30 ML SYRINGE IV SCH (08:55)
[2019-11-01] MEDS: GABAPENTIN 300 MG CAPSULE PO SCH ×2 (08:56→20:25)
[2019-11-01] MEDS: TAMSULOSIN 0.4 MG CAPSULE PO SCH (08:56)
[2019-11-01] MEDS: METOPROLOL TARTRATE 25 MG TABLET PO SCH ×2 (08:56→20:25)
[2019-11-01] MEDS: FLUCONAZOLE 100 MG TABLET PO SCH (08:56)
[2019-11-01] MEDS: PANTOPRAZOLE 40 MG TABLET PO SCH (08:57)
[2019-11-01] MEDS: OXYBUTYNIN XL 5 MG TABLET PO SCH (08:59)
[2019-11-01] MEDS: ONDANSETRON 4 MG/2 ML VIAL IV PRN (10:32)
[2019-11-01] MEDS ORDERED: METHOCARBAMOL 500 MG TABLET PO STA (12:18)
[2019-11-01 16:14] LABS: Apearance,Urine CLOUDY (Clear); Bilirubin,Urine Negative (Negative); Blood, Urine Moderate mg/dL (Negative); Glucose,Urine (UA) Negative (Negative); Ketones,Urine Negative (Negative); Mucus,Urine Occasional /LPF (Occasional); Nitrite,Urine Negative (Negative); Protein,Urine 30 MG/DL; RBC,Urine 8 /HPF (0-4); Squamous Epithelial Cell,Urine Occasional /HPF (0-10); Urine Color Yellow (Yellow); Urine Specific Gravity 1.008 (1.001-1.035); Urine Urobilinogen < 2.0 EU/DL (0.2-1.0); WBC,Urine 169 /HPF (0-6)
[2019-11-01] MEDS: DULoxetine 30 MG CAPSULE PO SCH (20:25)
[2019-11-01] MEDS: CYCLOBENZAPRINE 10 MG TABLET PO PRN (20:25)
[2019-11-02] MEDS: ONDANSETRON 4 MG/2 ML VIAL IV PRN (08:03)
[2019-11-02 08:19] LABS: Basophils # 0.1 10*3/uL (0.0-0.2); Basophils % 0.2 % (0.0-0.8); Hemoglobin 8.9 GM/DL (12.0-16.0); Immature Granulocytes % 0.9 %; Immature Granulocytes Absolute 0.27 #; Lymphocytes # 0.3 10*3/uL (1.4-4.0); Mean Corpuscular Volume 92.8 FL (87-102); Mean Platelet Volume 9.8 FL (9.6-12.0); Monocytes % 2.2 % (1.7-12.7); Neutrophils % 95.7 % (38.7-73.9); Platelet Count 232 T/CUMM (130-400); Red Blood Count 2.91 MC/CUMM (3.8-5.5); Red Cell Distribution Width 15.3 % (9.3-17.3); White Blood Count 30.7 T/CUMM (4-12)
[2019-11-02 08:35] LABS: Calcium 8.2 MG/DL (8.5-10.1)
[2019-11-02 08:43] LABS: Anisocytosis 1+; Band Neutrophils 6 % (0-10); Macrocytosis Slight; Platelet Estimate Normal; Segmented Neutrophils 90 % (50-85); Total Cells Counted 100
[2019-11-02] MEDS: POTASSIUM CHLORIDE 20 MEQ/15 ML UDCUP PER TUBE PRN ×4 (09:09→16:36)
[2019-11-02] MEDS: PHENAZOPYRIDINE 95 MG TABLET PO SCH ×3 (09:10→16:36)
[2019-11-02] MEDS: OXYBUTYNIN XL 5 MG TABLET PO SCH (09:10)
[2019-11-02] MEDS: PANTOPRAZOLE 40 MG TABLET PO SCH (09:10)
[2019-11-02] MEDS: METOPROLOL TARTRATE 25 MG TABLET PO SCH ×2 (09:10→20:52)
[2019-11-02] MEDS: GABAPENTIN 300 MG CAPSULE PO SCH ×2 (09:10→20:52)
[2019-11-02] MEDS: TAMSULOSIN 0.4 MG CAPSULE PO SCH (09:10)
[2019-11-02] MEDS: LEVOFLOXACIN INJ 500 MG in PREMIX 1 EACH IV SCH (09:10)
[2019-11-02] MEDS: HYDROmorphone PCA 30 MG/30 ML SYRINGE IV SCH (09:56)
[2019-11-02] MEDS: CYCLOBENZAPRINE 10 MG TABLET PO PRN (20:52)
[2019-11-02] MEDS: DULoxetine 30 MG CAPSULE PO SCH (20:52)
[2019-11-03 05:46] LABS: Basophils % 0.1 % (0.0-0.8); Eosinophils # 0.2 10*3/uL (0.0-0.87); Eosinophils % 0.9 % (0.00-10.9); Hematocrit 26.2 VOL% (35.7-47.0); Hemoglobin 8.1 GM/DL (12.0-16.0); Immature Granulocytes % 0.8 %; Immature Granulocytes Absolute 0.18 #; Lymphocytes # 0.5 10*3/uL (1.4-4.0); Lymphocytes % 2.1 % (21.3-54.2); Mean Corpuscular HGB Conc 30.9 GM/DL (32-36); Mean Corpuscular Volume 98.1 FL (87-102); Mean Platelet Volume 11.6 FL (9.6-12.0); Monocytes % 4.8 % (1.7-12.7); Neutrophils % 91.3 % (38.7-73.9); Red Blood Count 2.67 MC/CUMM (3.8-5.5); Red Cell Distribution Width 15.3 % (9.3-17.3); White Blood Count 22.3 T/CUMM (4-12)
[2019-11-03 06:07] LABS: Calcium 7.8 MG/DL (8.5-10.1)
[2019-11-03 06:09] LABS: Platelet Count 115 T/CUMM (130-400)
[2019-11-03 06:25] LABS: Band Neutrophils 2 % (0-10); Hypochromasia 1+; Lymphocytes 2 % (20-55); Macrocytosis Slight; Segmented Neutrophils 95 % (50-85); Total Cells Counted 100
[2019-11-03] MEDS: LEVOFLOXACIN INJ 500 MG in PREMIX 1 EACH IV SCH (08:08)
[2019-11-03] MEDS: POTASSIUM CHLORIDE 20 MEQ/15 ML UDCUP PER TUBE PRN (08:11)
[2019-11-03] MEDS: GABAPENTIN 300 MG CAPSULE PO SCH ×2 (08:11→20:47)
[2019-11-03] MEDS: OXYBUTYNIN XL 5 MG TABLET PO SCH (08:11)
[2019-11-03] MEDS: METOPROLOL TARTRATE 25 MG TABLET PO SCH ×2 (08:11→20:48)
[2019-11-03] MEDS: PANTOPRAZOLE 40 MG TABLET PO SCH (08:12)
[2019-11-03] MEDS: PHENAZOPYRIDINE 95 MG TABLET PO SCH ×3 (08:12→16:31)
[2019-11-03] MEDS: TAMSULOSIN 0.4 MG CAPSULE PO SCH (08:12)
[2019-11-03] MEDS: BACLOFEN 10 MG TABLET PO SCH ×2 (16:31→20:48)
[2019-11-03] MEDS: HYDROmorphone PCA 30 MG/30 ML SYRINGE IV SCH (20:47)
[2019-11-03] MEDS: DULoxetine 30 MG CAPSULE PO SCH (20:47)
[2019-11-03] MEDS: oxyCODONE IR 5 MG TABLET PO PRN (20:48)
[2019-11-03] MEDS: CYCLOBENZAPRINE 10 MG TABLET PO PRN (20:49)
[2019-11-04 05:21] LABS: Basophils % 0.1 % (0.0-0.8); Eosinophils # 0.2 10*3/uL (0.0-0.87); Eosinophils % 0.8 % (0.00-10.9); Hematocrit 29.8 VOL% (35.7-47.0); Hemoglobin 9.5 GM/DL (12.0-16.0); Immature Granulocytes Absolute 0.25 #; Lymphocytes # 0.3 10*3/uL (1.4-4.0); Lymphocytes % 1.2 % (21.3-54.2); Mean Corpuscular HGB Conc 31.9 GM/DL (32-36); Mean Corpuscular Volume 95.5 FL (87-102); Mean Platelet Volume 9.9 FL (9.6-12.0); Monocytes % 4.5 % (1.7-12.7); Neutrophils % 92.4 % (38.7-73.9); Platelet Count 205 T/CUMM (130-400); Red Blood Count 3.12 MC/CUMM (3.8-5.5); White Blood Count 25.8 T/CUMM (4-12)
[2019-11-04 05:47] LABS: Band Neutrophils 1 % (0-10); Eosinophils 2 % (0-10); Hypochromasia 1+; Lymphocytes 2 % (20-55); Macrocytosis Slight; Segmented Neutrophils 93 % (50-85); Total Cells Counted 100
[2019-11-04 05:48] LABS: Calcium 8.2 MG/DL (8.5-10.1); Platelet Estimate Normal
[2019-11-04] MEDS: BACLOFEN 10 MG TABLET PO SCH ×3 (09:09→20:09)
[2019-11-04] MEDS: PHENAZOPYRIDINE 95 MG TABLET PO SCH ×3 (09:10→17:47)
[2019-11-04] MEDS: LEVOFLOXACIN INJ 500 MG in PREMIX 1 EACH IV SCH (09:11)
[2019-11-04] MEDS: GABAPENTIN 300 MG CAPSULE PO SCH ×2 (09:11→20:09)
[2019-11-04] MEDS: PANTOPRAZOLE 40 MG TABLET PO SCH (09:11)
[2019-11-04] MEDS: TAMSULOSIN 0.4 MG CAPSULE PO SCH (09:11)
[2019-11-04] MEDS: METOPROLOL TARTRATE 25 MG TABLET PO SCH ×2 (09:11→20:10)
[2019-11-04] MEDS: OXYBUTYNIN XL 5 MG TABLET PO SCH (09:14)
[2019-11-04] MEDS: DULoxetine 30 MG CAPSULE PO SCH (20:09)
[2019-11-04] MEDS: CYCLOBENZAPRINE 10 MG TABLET PO PRN (20:09)
[2019-11-04] MEDS: HYDROmorphone PCA 30 MG/30 ML SYRINGE IV SCH (20:51)
[2019-11-05 04:54] LABS: Basophils % 0.2 % (0.0-0.8); Eosinophils # 0.2 10*3/uL (0.0-0.87); Eosinophils % 1.1 % (0.00-10.9); Hematocrit 28.6 VOL% (35.7-47.0); Hemoglobin 8.9 GM/DL (12.0-16.0); Immature Granulocytes % 0.8 %; Immature Granulocytes Absolute 0.18 #; Lymphocytes # 0.4 10*3/uL (1.4-4.0); Mean Corpuscular HGB Conc 31.1 GM/DL (32-36); Mean Corpuscular Volume 96.3 FL (87-102); Mean Platelet Volume 9.7 FL (9.6-12.0); Neutrophils % 90.9 % (38.7-73.9); Platelet Count 196 T/CUMM (130-400); Red Blood Count 2.97 MC/CUMM (3.8-5.5); Red Cell Distribution Width 14.8 % (9.3-17.3); White Blood Count 21.3 T/CUMM (4-12)
[2019-11-05 05:23] LABS: Calcium 7.9 MG/DL (8.5-10.1); Osmolality,Calculated 266.1 MOS/KG (273-304)
[2019-11-05 05:29] LABS: Band Neutrophils 1 % (0-10); Eosinophils 1 % (0-10); Lymphocytes 1 % (20-55); Segmented Neutrophils 95 % (50-85); Total Cells Counted 100
[2019-11-05 05:30] LABS: Anisocytosis 1+; Platelet Estimate Normal
[2019-11-05] MEDS: POTASSIUM CHLORIDE 20 MEQ/15 ML UDCUP PER TUBE PRN ×4 (08:30→17:27)
[2019-11-05] MEDS: LEVOFLOXACIN INJ 500 MG in PREMIX 1 EACH IV SCH (08:30)
[2019-11-05] MEDS: METOPROLOL TARTRATE 25 MG TABLET PO SCH ×2 (08:31→20:26)
[2019-11-05] MEDS: OXYBUTYNIN XL 5 MG TABLET PO SCH (08:31)
[2019-11-05] MEDS: TAMSULOSIN 0.4 MG CAPSULE PO SCH (08:31)
[2019-11-05] MEDS: PANTOPRAZOLE 40 MG TABLET PO SCH (08:31)
[2019-11-05] MEDS: GABAPENTIN 300 MG CAPSULE PO SCH ×2 (08:31→20:26)
[2019-11-05] MEDS: BACLOFEN 10 MG TABLET PO SCH ×3 (08:31→20:26)
[2019-11-05] MEDS: HYDROmorphone PCA 30 MG/30 ML SYRINGE IV SCH (10:30)
[2019-11-05] MEDS: ACETAMINOPHEN 325 MG TABLET PO PRN (20:25)
[2019-11-05] MEDS: CYCLOBENZAPRINE 10 MG TABLET PO PRN (20:26)
[2019-11-05] MEDS: DULoxetine 30 MG CAPSULE PO SCH (20:26)
[2019-11-06] MEDS: PANTOPRAZOLE 40 MG TABLET PO SCH (10:30)
[2019-11-06] MEDS: OXYBUTYNIN XL 5 MG TABLET PO SCH (10:30)
[2019-11-06] MEDS: PHENAZOPYRIDINE 95 MG TABLET PO SCH ×3 (10:30→16:53)
[2019-11-06] MEDS: POLYETHYLENE GLYCOL POWDER 17 GM PACK PO SCH ×2 (10:30→10:36)
[2019-11-06] MEDS: GABAPENTIN 300 MG CAPSULE PO SCH ×2 (10:30→20:44)
[2019-11-06] MEDS: LEVOFLOXACIN 500 MG TABLET PO SCH (10:31)
[2019-11-06] MEDS: ACETAMINOPHEN 325 MG TABLET PO PRN (10:31)
[2019-11-06] MEDS: BACLOFEN 10 MG TABLET PO SCH ×3 (10:31→20:44)
[2019-11-06] MEDS: TAMSULOSIN 0.4 MG CAPSULE PO SCH (10:31)
[2019-11-06] MEDS: METOPROLOL TARTRATE 25 MG TABLET PO SCH ×2 (10:40→20:44)
[2019-11-06] MEDS: ONDANSETRON 4 MG/2 ML VIAL IV PRN (13:41)
[2019-11-06] MEDS: DULoxetine 30 MG CAPSULE PO SCH (20:44)
[2019-11-06] MEDS: CYCLOBENZAPRINE 10 MG TABLET PO PRN (20:45)
[2019-11-07] MEDS: ACETAMINOPHEN 325 MG TABLET PO PRN ×2 (05:21→09:01)
[2019-11-07] MEDS: LEVOFLOXACIN 500 MG TABLET PO SCH (08:46)
[2019-11-07] MEDS: PANTOPRAZOLE 40 MG TABLET PO SCH (08:46)
[2019-11-07] MEDS: GABAPENTIN 300 MG CAPSULE PO SCH ×2 (08:46→20:33)
[2019-11-07] MEDS: PHENAZOPYRIDINE 95 MG TABLET PO SCH ×3 (08:46→16:29)
[2019-11-07] MEDS: METOPROLOL TARTRATE 25 MG TABLET PO SCH ×2 (08:46→20:33)
[2019-11-07] MEDS: TAMSULOSIN 0.4 MG CAPSULE PO SCH (08:46)
[2019-11-07] MEDS: POLYETHYLENE GLYCOL POWDER 17 GM PACK PO SCH ×2 (08:47→08:53)
[2019-11-07] MEDS: BACLOFEN 10 MG TABLET PO SCH ×3 (08:47→20:33)
[2019-11-07] MEDS: OXYBUTYNIN XL 5 MG TABLET PO SCH (08:47)
[2019-11-07] MEDS: SIMETHICONE CHEW 125 MG TABLET PO PRN (09:01)
[2019-11-07] MEDS ORDERED: oxyCODONE IR 5 MG TABLET PO PRN (09:36)
[2019-11-07] MEDS: ONDANSETRON 4 MG/2 ML VIAL IV PRN ×2 (09:46→14:40)
[2019-11-07] MEDS: fentaNYL 50 MCG/HR PATCH TRANSDERM SCH (09:46)
[2019-11-07] MEDS: oxyCODONE IR 5 MG TABLET PO PRN ×2 (16:29→20:34)
[2019-11-07] MEDS: CYCLOBENZAPRINE 10 MG TABLET PO PRN (20:33)
[2019-11-07] MEDS: DULoxetine 30 MG CAPSULE PO SCH (20:33)
[2019-11-08] MEDS: LINACLOTIDE 145 MCG CAPSULE PO SCH (08:38)
[2019-11-08] MEDS: GABAPENTIN 300 MG CAPSULE PO SCH ×2 (08:39→20:18)
[2019-11-08] MEDS: METOPROLOL TARTRATE 25 MG TABLET PO SCH ×2 (08:39→20:18)
[2019-11-08] MEDS: OXYBUTYNIN XL 5 MG TABLET PO SCH (08:39)
[2019-11-08] MEDS: PHENAZOPYRIDINE 95 MG TABLET PO SCH ×3 (08:39→16:43)
[2019-11-08] MEDS: TAMSULOSIN 0.4 MG CAPSULE PO SCH (08:40)
[2019-11-08] MEDS: POLYETHYLENE GLYCOL POWDER 17 GM PACK PO SCH (08:40)
[2019-11-08] MEDS: PANTOPRAZOLE 40 MG TABLET PO SCH (08:40)
[2019-11-08] MEDS: BACLOFEN 10 MG TABLET PO SCH ×3 (08:40→20:18)
[2019-11-08] MEDS: ACETAMINOPHEN 325 MG TABLET PO PRN (18:27)
[2019-11-08] MEDS: DULoxetine 30 MG CAPSULE PO SCH (20:18)
[2019-11-08] MEDS: oxyCODONE IR 5 MG TABLET PO PRN (20:19)
[2019-11-09] MEDS: oxyCODONE IR 5 MG TABLET PO PRN ×4 (07:23→19:43)
[2019-11-09] MEDS: LINACLOTIDE 145 MCG CAPSULE PO SCH (08:51)
[2019-11-09] MEDS: METOPROLOL TARTRATE 25 MG TABLET PO SCH ×2 (08:52→20:36)
[2019-11-09] MEDS: PHENAZOPYRIDINE 95 MG TABLET PO SCH ×3 (08:52→16:46)
[2019-11-09] MEDS: TAMSULOSIN 0.4 MG CAPSULE PO SCH (08:52)
[2019-11-09] MEDS: PANTOPRAZOLE 40 MG TABLET PO SCH (08:52)
[2019-11-09] MEDS: OXYBUTYNIN XL 5 MG TABLET PO SCH (08:52)
[2019-11-09] MEDS: GABAPENTIN 300 MG CAPSULE PO SCH ×2 (08:52→20:36)
[2019-11-09] MEDS: POLYETHYLENE GLYCOL POWDER 17 GM PACK PO SCH (08:53)
[2019-11-09] MEDS: BACLOFEN 10 MG TABLET PO SCH ×3 (08:53→20:35)
[2019-11-09] MEDS: CYCLOBENZAPRINE 10 MG TABLET PO PRN (20:35)
[2019-11-09] MEDS: DULoxetine 30 MG CAPSULE PO SCH (20:35)
[2019-11-10] MEDS: oxyCODONE IR 5 MG TABLET PO PRN ×3 (02:31→15:00)
[2019-11-10] MEDS: PANTOPRAZOLE 40 MG TABLET PO SCH (09:15)
[2019-11-10] MEDS: BACLOFEN 10 MG TABLET PO SCH ×2 (09:15→15:02)
[2019-11-10] MEDS: TAMSULOSIN 0.4 MG CAPSULE PO SCH (09:15)
[2019-11-10] MEDS: PHENAZOPYRIDINE 95 MG TABLET PO SCH ×2 (09:16→12:15)
[2019-11-10] MEDS: GABAPENTIN 300 MG CAPSULE PO SCH (09:16)
[2019-11-10] MEDS: OXYBUTYNIN XL 5 MG TABLET PO SCH (09:16)
[2019-11-10] MEDS: LINACLOTIDE 145 MCG CAPSULE PO SCH (09:17)
[2019-11-10] MEDS: fentaNYL 50 MCG/HR PATCH TRANSDERM SCH (09:17)
[2019-11-10] MEDS: POLYETHYLENE GLYCOL POWDER 17 GM PACK PO SCH (09:18)
[2019-11-10] MEDS: METOPROLOL TARTRATE 25 MG TABLET PO SCH (09:23)
[2019-11-10 12:12] VITALS: BP 126/72
[2019-11-10] MEDS: ONDANSETRON 4 MG/2 ML VIAL IV PRN (12:15)
== END 2019-11-10 15:27 | disposition hospice, home (50) | DRG 817 ==
LOC: N.4E 23:41 → SUATTDRO 23:41 → N.TELES 10-21 14:48
PROVIDERS: ADMIT Internal Medicine; ATTEND Internal Medicine